=== PATIENT | male | born 1990 | race Caucasian/White ===

== ENCOUNTER 2017-01-09 17:13 | Emergency (ER) | payer MEDICAID | END 2017-01-09 18:46 | disposition home or self-care (01) | DX: S51.811A Laceration without foreign body of right forearm, initial encounter (principal); W26.0XXA Contact with knife, initial encounter; Y93.89 Activity, other specified; Y92.810 Car as the place of occurrence of the external cause; R03.0 Elevated blood-pressure reading, without diagnosis of hypertension; F17.200 Nicotine dependence, unspecified, uncomplicated; Z79.01 Long term (current) use of anticoagulants ==

== ENCOUNTER 2017-04-20 14:04 | Emergency (ER) | payer MEDICAID ==
[2017-04-20 14:14] VITALS: BP 132/92
--- NOTE | 2017-04-20 15:15 | ED Physician Documentation ---
PD HPI UPPER EXT INJURY - Stated complaint Stated Complaint: COLD,HAND INJURY,R RIB INJURY - Chief complaint Chief Complaint: General - History obtained from History obtained from: Patient - History of Present Illness Location: Right, Hand Type of injury: Blunt / blow (he punched a wall couple days ago and has pain in hand. Started a cough with congestion and having dyspnea and right ribs pain with cough and deep breathing) Where injury occurred: Home Timing - onset: How many weeks ago (had cough and some pain with coughing right ribs.) Timing - duration: Days Timing - details: Abrupt onset (with the pain in hand/slow improvement, can add finger splints but he declines. got chest/ribs xray and appears okay. Presume muscular strain from cough.) Improved by: Rest Worsened by: Moving, Palpating Associated symptoms: No: Weakness, Numbness, Tingling Review of Systems Constitutional: denies: Fever, Chills Nose: denies: Rhinorrhea / runny nose, Congestion Throat: denies: Sore throat Cardiac: reports: Chest pain / pressure (hurts with cough and deep breathing) Respiratory: reports: Dyspnea, Cough, Wheezing GI: reports: Nausea, Vomiting. denies: Abdominal Pain, Diarrhea : denies: Dysuria, Frequency PD PAST MEDICAL HISTORY - Past Medical History Cardiovascular: None Respiratory: None Neuro: None Endocrine/Autoimmune: None : Renal insuffiency Psych: Anxiety, ADD/ADHD Other Past Medical History: clot in intestine, nephrotic syndrome - Past Surgical History Past Surgical History: Yes - Present Medications Home Medications: Ambulatory Orders Medication Instructions Recorded Confirmed Atorvastatin [Lipitor] 40 mg PO DAILY 01/09/17 01/09/17 Lisinopril [Zestril] 5 mg PO DAILY 01/09/17 01/09/17 Warfarin [Coumadin] 5 mg PO 1400 01/09/17 01/09/17 predniSONE [Deltasone] 35 mg PO DAILY 01/09/17 01/09/17 Albuterol Sulfate [Proair Hfa 2 puffs IH QID #1 hfa.aer.ad 04/20/17 Inhaler] Azithromycin [Zithromax] 250 mg PO DAILY #6 tablet 04/20/17 Hydrocodone/Acetaminophen [[place] 1 each PO Q6H PRN #20 tablet 04/20/17 5-325 Tablet] - Allergies Allergies/Adverse Reactions: Allergies Allergy/AdvReac Type Severity Reaction Status Date / Time amoxicillin trihydrate * Allergy Unknown Verified 05/22/16 17:26 [From Augmentin] potassium clavulanate * Allergy Unknown Verified 05/22/16 17:26 [From Augmentin] - Social History Does the pt smoke?: Yes Smoking Status: Current every day smoker Does the pt drink ETOH?: Yes Does the pt have substance abuse?: Yes Substance Use and Type: Marijuana - Immunizations Immunizations are current?: Yes Immunizations: TDAP current <10years - POLST Patient has POLST: No PD ED PE NORMAL - Vitals Vital signs reviewed: Yes - General General: Alert and oriented X 3, No acute distress, Well developed/nourished - HEENT HEENT: Atraumatic, Ears normal, Pharynx benign - Neck Neck: Supple, no meningeal sign - Cardiac Cardiac: RRR, No murmur - Respiratory Respiratory: No respiratory distress - Abdomen Abdomen: Soft, Non tender - Male Male : Deferred - Rectal Rectal: Deferred - Back Back: No CVA TTP - Derm Derm: Normal color - Extremities Extremities: Other (right hand with tenderness and ecchymosis dorsal pointer and middle finger MCPs, without deformity. Able to extend but some discomfort.) - Neuro Neuro: Alert and oriented X 3, No motor deficit, No sensory deficit Results - Vitals Vitals: Oxygen O2 Source Room air PD MEDICAL DECISION MAKING - ED course Complexity details: reviewed results, re-evaluated patient, considered differential (he has been on steroids longer term, so does not want to stop 15 to zero without better taper, and not with current URI symptoms (may even need stress dose). ), d/w patient Departure - Departure Disposition: 01 Home, Self Care Clinical Impression: Right-sided chest pain Contusion of hand, right Qualifiers: Encounter type: initial encounter Qualified Code(s): S60.221A - Contusion of right hand, initial encounter Upper respiratory infection Qualifiers: URI type: unspecified URI Qualified Code(s): J06.9 - Acute upper respiratory infection, unspecified Condition: Stable Record reviewed to determine appropriate education?: Yes Instructions: ED Upper Resp Infec Abx Tx, ED Contusion Hand Follow-Up: Cristian Almanzar MD [Primary Care Provider] - Prescriptions: Hydrocodone/Acetaminophen [[place] 5-325 Tablet] 1 each PO Q6H PRN #20 tablet PRN Reason: Pain Albuterol Sulfate [Proair Hfa Inhaler] 2 puffs IH QID #1 hfa.aer.ad Azithromycin [Zithromax] 250 mg PO DAILY #6 tablet Comments: Resume your prednisone 15 mg daily for now and can start tapering at 10 mg after a week or so. This can help with the cough as well. He is on albuterol inhaler 2 puffs 4 times a day and extra times as needed for trouble breathing. Due to concerns for bacterial infection, will treat it with Zithromax antibiotic for 5 days. For the cough and or pain of the chest, he can use hydrocodone every 6 hours if needed. Follow-up with your primary care if not improving over the next several days to week. For the hand use gentle use of it and that should slowly improve. There is no fractures on the hand. Discharge Date/Time: 04/20/17 16:51
[2017-04-20] MEDS ORDERED: HYDROcod/ACETAM 5/325 MG TABLET PO STA (15:25)
[2017-04-20] MEDS ORDERED: ALBUTEROL NEB 2.5 MG/3 ML INH STA (15:25)
[2017-04-20] MEDS ORDERED: ALBUTEROL NEB 2.5 MG/3 ML INH ONE (15:39)
[2017-04-20] MEDS ORDERED: HYDROcod/ACETAM 5/325 MG TABLET ONE (15:43)
--- NOTE | 2017-04-20 16:12 | XRAY Preliminary Report ---
Exam: XR Ribs w/PA Chest RT IMPRESSION: Negative rib radiography. [facility] SITE ID: [id number]
--- NOTE | 2017-04-20 16:13 | XRAY Preliminary Report ---
Exam: XR Hand 3 View RT IMPRESSION: No evidence of fracture or dislocation. [facility] SITE ID: [id number]
--- NOTE | 2017-04-20 16:15 | XRAY Report ---
EXAM: RIGHT RIB RADIOGRAPHY EXAM DATE: 04/20/2017 03:51 PM. CLINICAL HISTORY: Rib pain. COMPARISON: None. TECHNIQUE: 2 views. FINDINGS: Bones: Normal. No fracture or bone lesion. Lungs: No focal opacities evident. No pneumothorax or pleural effusions. Mediastinum: Heart and cardiomediastinal contours are unremarkable. Other: None. IMPRESSION: Negative rib radiography. [facility] Referring Provider Line: [phone] SITE ID: [id number]
--- NOTE | 2017-04-20 16:16 | XRAY Report ---
EXAM: RIGHT HAND RADIOGRAPHY EXAM DATE: 04/20/2017 03:49 PM. CLINICAL HISTORY: Punched a wall two days ago. COMPARISON: None. TECHNIQUE: 3 views. FINDINGS: Bones: No fracture or focal bony lesion. Joints: No evidence of dislocation. Soft Tissues: No unexpected soft tissue findings. IMPRESSION: No evidence of fracture or dislocation. [facility] Referring Provider Line: [phone] SITE ID: [id number]
== END 2017-04-20 16:51 | disposition home or self-care (01) ==
LOC: ED 14:04
DX: R07.9 Chest pain, unspecified (principal); S60.221A Contusion of right hand, initial encounter; J06.9 Acute upper respiratory infection, unspecified; F17.200 Nicotine dependence, unspecified, uncomplicated; W22.09XA Striking against other stationary object, initial encounter; Y93.89 Activity, other specified; Y92.009 Unspecified place in unspecified non-institutional (private) residence as the place of occurrence of the external cause
CPT/HCPCS: 71101; 73130; 94640; 99283; A9270; J7613

== ENCOUNTER 2017-06-06 20:56 | Outpatient (CLI) | payer OTHER | END 2017-06-06 20:57 | disposition home or self-care (01) | LOC: LAB 20:56 | PROVIDERS: ATTEND Pathology Neuropathology | DX: Z01.89 Encounter for other specified special examinations (principal) | CPT/HCPCS: 36415 ==

== ENCOUNTER 2017-10-17 07:53 | Outpatient (CLI) | payer MEDICAID | END 2017-10-17 07:54 | disposition critical access hospital (66) | LOC: EMS 07:53 | PROVIDERS: ATTEND Surgery | DX: R45.851 Suicidal ideations (principal) | CPT/HCPCS: A0425; A0429 ==

== ENCOUNTER 2017-10-17 08:09 | Emergency (ER) | payer MEDICAID ==
[2017-10-17 08:40] LABS: HCT - HEMATOCRIT 48.1 % (42.0-52.0); HGB - HEMOGLOBIN 16.5 g/dL (14.0-18.0); MEAN CORPUSCULAR HEMOGLOBIN 30.5 pg (27.0-31.0); MEAN CORPUSCULAR HGB CONC 34.2 g/dL (32.0-36.0); MEAN CORPUSCULAR VOLUME 89.1 fL (80.0-94.0); MEAN PLATELET VOLUME 8.1 fL (7.4-11.4); RED BLOOD COUNT 5.39 10^6/uL (4.70-6.10); RED CELL DISTRIBUTION WIDTH 15.2 % (12.0-15.0); WHITE BLOOD COUNT 8.4 x10^3/uL (4.8-10.8)
[2017-10-17 08:54] LABS: ALBUMIN/GLOBULIN RATIO 0.4 (1.0-2.2); BILIRUBIN,TOTAL 0.4 mg/dL (0.2-1.0); BUN - BLOOD UREA NITROGEN 24 mg/dL (6-20); CARBON DIOXIDE - CO2 25 mmol/L (21-32); CHLORIDE 102 mmol/L (101-111); GFR - MDRD 88 (>89); GLUCOSE 98 mg/dL (70-100); LIPASE 25 U/L (22-51); POTASSIUM 3.8 mmol/L (3.5-5.0); SALICYLATE < 6.0 mg/dL; SODIUM 137 mmol/L (135-145); TOTAL PROTEIN 5.2 g/dL (6.7-8.2)
[2017-10-17 09:05] LABS: ACETAMINOPHEN < 10 ug/mL (10-30)
[2017-10-17] MEDS ORDERED: ACETAMINOPHEN 500 MG TABLET PO STA (09:12)
--- NOTE | 2017-10-17 09:20 | CT Preliminary Report ---
Exam: CT FACIAL BONES W/O IMPRESSION: Right orbital/periorbital soft tissue swelling without underlying fracture or other acute process. Moderate changes of chronic sinusitis most prominent in the maxillary and ethmoid air cells. No air-f luid levels. [facility] SITE ID: [id number]
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
[2017-10-17 09:46] VITALS: BP 153/92
== END 2017-10-17 09:50 | disposition home or self-care (01) ==
LOC: EDUNIT# → ED 08:09
DX: S00.83XA Contusion of other part of head, initial encounter (principal); X83.8XXA Intentional self-harm by other specified means, initial encounter; Y92.019 Unspecified place in single-family (private) house as the place of occurrence of the external cause; F43.0 Acute stress reaction; N04.9 Nephrotic syndrome with unspecified morphologic changes; Z79.01 Long term (current) use of anticoagulants; F17.200 Nicotine dependence, unspecified, uncomplicated
CPT/HCPCS: 36415; 70486; 80053; 80306; 80307; 80320; 80329; 83690; 85027; 99283; 99284; A9270

== ENCOUNTER 2018-04-12 10:28 | Outpatient (CLI) | payer MEDICAID | END 2018-04-12 10:29 | disposition critical access hospital (66) | LOC: EMS 10:28 | PROVIDERS: ATTEND Surgery | DX: R45.851 Suicidal ideations (principal) | CPT/HCPCS: A0425; A0429 ==

== ENCOUNTER 2018-04-12 10:43 | Emergency (ER) | payer MEDICAID ==
[2018-04-12 10:59] LABS: MUDS CUTOFF CONCENTRATIONS CUTOFF CONC BELOW:
[2018-04-12 11:06] LABS: BASOPHILS # (AUTO) 0.1 10^3/uL (0.0-0.1); BASOPHILS % (AUTO) 1.1 %; EOSINOPHILS # (AUTO) 0.4 10^3/uL (0.0-0.7); EOSINOPHILS % (AUTO) 4.8 %; HGB - HEMOGLOBIN 15.7 g/dL (14.0-18.0); LYMPHOCYTES # (AUTO) 2.8 10^3/uL (1.5-3.5); LYMPHOCYTES % (AUTO) 30.3 %; MEAN CORPUSCULAR HEMOGLOBIN 31.8 pg (27.0-31.0); MEAN CORPUSCULAR HGB CONC 33.7 g/dL (32.0-36.0); MEAN CORPUSCULAR VOLUME 94.5 fL (80.0-94.0); MEAN PLATELET VOLUME 7.7 fL (7.4-11.4); MONOCYTES # (AUTO) 0.6 10^3/uL (0.0-1.0); MONOCYTES % (AUTO) 6.2 %; NEUTROPHILS # (AUTO) 5.3 10^3/uL (1.5-6.6); NEUTROPHILS % (AUTO) 57.6 %; PLT - PLATELET COUNT 329 10^3/uL (130-450); RED BLOOD COUNT 4.95 10^6/uL (4.70-6.10); RED CELL DISTRIBUTION WIDTH 13.3 % (12.0-15.0); WHITE BLOOD COUNT 9.3 x10^3/uL (4.8-10.8)
[2018-04-12 11:13] LABS: BILIRUBIN,URINE NEGATIVE (NEGATIVE); GLUCOSE, URINE (UA) NEGATIVE (NEGATIVE); KETONES,URINE (UA) NEGATIVE (NEGATIVE); LEUKOCYTE ESTERASE, URINE NEGATIVE (NEGATIVE); NITRITE,URINE NEGATIVE (NEGATIVE); OCCULT BLOOD,URINE TRACE-INTA (NEGATIVE); PROTEIN,URINE >=300 mg/dL (NEGATIVE); UROBILINOGEN,URINE 0.2 (NORMAL) E.U./dL (NORMAL)
[2018-04-12 11:15] LABS: CLARITY,URINE CLEAR (CLEAR)
[2018-04-12 11:22] LABS: ALBUMIN 2.3 g/dL (3.2-5.5); ALBUMIN/GLOBULIN RATIO 0.7 (1.0-2.2); ALKALINE PHOSPHATASE 88 IU/L (42-121); ALT ALANINE AMINOTRANSFERASE 52 IU/L (10-60); AST ASPARTATE AMINOTRANSFERASE 46 IU/L (10-42); BILIRUBIN,TOTAL 0.5 mg/dL (0.2-1.0); BUN - BLOOD UREA NITROGEN 16 mg/dL (6-20); CALCIUM 8.4 mg/dL (8.5-10.3); CARBON DIOXIDE - CO2 26 mmol/L (21-32); CHLORIDE 101 mmol/L (101-111); CREATININE 0.9 mg/dL (0.6-1.2); GFR - MDRD 99 (>89); GLUCOSE 118 mg/dL (70-100); LIPASE 28 U/L (22-51); SALICYLATE < 6.0 mg/dL; SODIUM 137 mmol/L (135-145); TOTAL PROTEIN 5.8 g/dL (6.7-8.2)
[2018-04-12 11:25] LABS: BACTERIA,URINE Rare /HPF (None Seen); RBC,URINE None Seen /HPF (0-5); SQUAMOUS EPITHELIAL CELL,UR RARE Squamous (<= Few)
[2018-04-12 11:26] LABS: AMPHETAMINE SCREEN,URINE POSITIVE (NEGATIVE); BENZODIAZEPINES SCREEN, URINE NEGATIVE (NEGATIVE); CASTS, URINE 0-2 Cellular Casts /LPF; COCAINE SCREEN URINE NEGATIVE (NEGATIVE); METHADONE SCREEN, URINE NEGATIVE (NEGATIVE); METHAMPHETAMINES SCREEN, URINE POSITIVE (NEGATIVE); OPIATE SCREEN, URINE NEGATIVE (NEGATIVE); OXYCODONE SCREEN, URINE NEGATIVE (NEGATIVE); PROPOXYPHENE SCREEN, URINE NEGATIVE (NEGATIVE); TRICYCLIC ANTIDEPRESSANT,URINE NEGATIVE (NEGATIVE)
[2018-04-12 11:27] LABS: ACETAMINOPHEN < 10 ug/mL (10-30)
--- NOTE | 2018-04-12 12:55 | ED Physician Documentation ---
PD HPI MHE - Stated complaint Stated Complaint: MHE - Chief complaint Chief Complaint: MHE - History obtained from History obtained from: Patient - History of Present Illness Primary symptom: Suicidal ideation (made comment to his girlfriend about hurting himself, with not anything left to live for, as she was not letting him see their child as per court parenting plan. She called PD and they brought him here. He says he said it just to get a response from her. He says did not mean it and is not suicidal. No police statement left here in ED.) Timing - onset: Today Contributing factors: Substance abuse - drugs (in the past but denies currently. ). No: Substance abuse - ETOH Recently seen: Not recently seen Review of Systems Constitutional: denies: Fever Nose: denies: Rhinorrhea / runny nose, Congestion Throat: denies: Sore throat Cardiac: denies: Chest pain / pressure, Palpitations Respiratory: denies: Dyspnea, Cough GI: denies: Abdominal Pain, Vomiting, Diarrhea Neurologic: denies: Headache, Head injury Psychiatric: reports: Depressed, Anxiety. denies: Suicidal, Delusions PD PAST MEDICAL HISTORY - Past Medical History Past Medical History: Yes Cardiovascular: None, Hypertension, High cholesterol Respiratory: None Endocrine/Autoimmune: None : Renal insuffiency Psych: Anxiety, ADD/ADHD - Past Surgical History Past Surgical History: Yes - Present Medications Home Medications: Ambulatory Orders Medication Instructions Recorded Confirmed Atorvastatin [Lipitor] 40 mg PO DAILY 01/09/17 01/09/17 Lisinopril [Zestril] 5 mg PO DAILY 01/09/17 01/09/17 Warfarin [Coumadin] 5 mg PO 1400 01/09/17 01/09/17 predniSONE [Deltasone] 35 mg PO DAILY 01/09/17 01/09/17 Albuterol Sulfate [Proair Hfa 2 puffs IH QID #1 hfa.aer.ad 04/20/17 Inhaler] Azithromycin [Zithromax] 250 mg PO DAILY #6 tablet 04/20/17 Hydrocodone/Acetaminophen [[place] 1 each PO Q6H PRN #20 tablet 04/20/17 5-325 Tablet] - Allergies Allergies/Adverse Reactions: Allergies Allergy/AdvReac Type Severity Reaction Status Date / Time amoxicillin trihydrate * Allergy Unknown Verified 05/22/16 17:26 [From Augmentin] potassium clavulanate * Allergy Unknown Verified 05/22/16 17:26 [From Augmentin] - Social History Does the pt smoke?: Yes Smoking Status: Current every day smoker Does the pt drink ETOH?: Yes Does the pt have substance abuse?: Yes Substance Use and Type: Marijuana - Immunizations Immunizations are current?: Yes Immunizations: TDAP current <10years - POLST Patient has POLST: No PD ED PE NORMAL - Vitals Vital signs reviewed: Yes - General General: Alert and oriented X 3, No acute distress, Well developed/nourished - Neck Neck: Supple, no meningeal sign, No adenopathy - Cardiac Cardiac: RRR, No murmur - Respiratory Respiratory: Clear bilaterally - Derm Derm: Normal color, Warm and dry - Neuro Neuro: Alert and oriented X 3, No motor deficit, Normal speech - Psych Psych: Normal mood. No: Normal affect (slightly anxious but pleasant and cooperative. ) Results - Vitals Vitals: Oxygen O2 Source Room air - Labs Labs: Laboratory Tests 04/12/18 04/12/18 04/12/18 10:56 11:03 11:03 WBC 9.3 RBC 4.95 Hgb 15.7 Hct 46.8 MCV 94.5 H MCH 31.8 H MCHC 33.7 RDW 13.3 Plt Count 329 MPV 7.7 Neut # (Auto) 5.3 Lymph # (Auto) 2.8 [place] # (Auto) 0.6 Eos # (Auto) 0.4 Baso # (Auto) 0.1 Absolute Nucleated RBC 0.01 Nucleated RBC % 0.1 PT INR Sodium 137 Potassium 4.0 Chloride 101 Carbon Dioxide 26 Anion Gap 10.0 BUN 16 Creatinine 0.9 Estimated GFR (MDRD) 99 Glucose 118 H Calcium 8.4 L Total Bilirubin 0.5 AST 46 H ALT 52 Alkaline Phosphatase 88 Total Protein 5.8 L Albumin 2.3 L Globulin 3.5 Albumin/Globulin Ratio 0.7 L Lipase 28 Urine Color YELLOW Urine Clarity CLEAR Urine pH 6.0 Ur Specific [place] 1.025 Urine Protein >=300 Urine Glucose (UA) NEGATIVE Urine Ketones NEGATIVE Urine Occult Blood TRACE-INTA Urine Nitrite NEGATIVE Urine Bilirubin NEGATIVE Urine Urobilinogen 0.2 (NORMAL) Ur Leukocyte Esterase NEGATIVE Urine RBC None Seen Urine WBC 0-3 Ur Squamous Epith Cells RARE Squamous Urine Bacteria Rare Urine Casts 0-2 Cellular Casts Ur Microscopic Review INDICATED Urine Culture Comments NOT INDICATED Salicylates < 6.0 Urine Opiates Screen NEGATIVE Ur Oxycodone Screen NEGATIVE Urine Methadone Screen NEGATIVE Ur Propoxyphene Screen NEGATIVE Acetaminophen < 10 L Ur Barbiturates Screen NEGATIVE Ur Tricyclics Screen NEGATIVE Ur Phencyclidine Scrn NEGATIVE Ur Amphetamine Screen POSITIVE H U Methamphetamines Scrn POSITIVE H U Benzodiazepines Scrn NEGATIVE Urine Cocaine Screen NEGATIVE U Cannabinoids Screen POSITIVE H Ethyl Alcohol 5.1 04/12/18 11:03 WBC RBC Hgb Hct MCV MCH MCHC RDW Plt Count MPV Neut # (Auto) Lymph # (Auto) [place] # (Auto) Eos # (Auto) Baso # (Auto) Absolute Nucleated RBC Nucleated RBC % PT 11.4 INR 1.0 Sodium Potassium Chloride Carbon Dioxide Anion Gap BUN Creatinine Estimated GFR (MDRD) Glucose Calcium Total Bilirubin AST ALT Alkaline Phosphatase Total Protein Albumin Globulin Albumin/Globulin Ratio Lipase Urine Color Urine Clarity Urine pH Ur Specific [place] Urine Protein Urine Glucose (UA) Urine Ketones Urine Occult Blood Urine Nitrite Urine Bilirubin Urine Urobilinogen Ur Leukocyte Esterase Urine RBC Urine WBC Ur Squamous Epith Cells Urine Bacteria Urine Casts Ur Microscopic Review Urine Culture Comments Salicylates Urine Opiates Screen Ur Oxycodone Screen Urine Methadone Screen Ur Propoxyphene Screen Acetaminophen Ur Barbiturates Screen Ur Tricyclics Screen Ur Phencyclidine Scrn Ur Amphetamine Screen U Methamphetamines Scrn U Benzodiazepines Scrn Urine Cocaine Screen U Cannabinoids Screen Ethyl Alcohol PD MEDICAL DECISION MAKING - ED course Complexity details: d/w patient (he denies suicidal ideation. SW not available. I feel he is able to be discharged safely. ) - Sepsis Event Vital Signs: Oxygen O2 Source Room air Departure - Departure Disposition: 01 Home, Self Care Clinical Impression: Suicidal ideation, Situational anxiety Condition: Stable Record reviewed to determine appropriate education?: Yes Follow-Up: Cinda Asher ARNP [Primary Care Provider] - Comments: Follow-through with the initial evaluation at [facility] and obtain counseling. Drink lots of fluids. Call the crisis line if you feel that you have a need to talk to someone urgently at any time. Discharge Date/Time: 04/12/18 13:51
[2018-04-12 13:31] LABS: PT - PROTHROMBIN TIME 11.4 secs (9.9-12.6)
[2018-04-12 13:51] VITALS: BP 162/110
== END 2018-04-12 13:51 | disposition home or self-care (01) ==
LOC: EDUNIT# → ED 10:43
DX: R45.851 Suicidal ideations (principal); F41.8 Other specified anxiety disorders; I10 Essential (primary) hypertension; E78.00 Pure hypercholesterolemia, unspecified; Z79.01 Long term (current) use of anticoagulants; F17.200 Nicotine dependence, unspecified, uncomplicated
CPT/HCPCS: 36415; 80053; 80306; 80307; 80320; 80329; 81001; 81003; 83690; 85025; 85610; 87086; 99283

== ENCOUNTER 2018-12-17 09:20 | Emergency (ER) | payer MEDICAID ==
[2018-12-17 09:28] VITALS: BP 143/93
--- NOTE | 2018-12-17 09:43 | ED Physician Documentation ---
PD HPI HEENT - Stated complaint Stated Complaint: LT SIDE FACIAL SWELLING/LT EAR PX - Chief complaint Chief Complaint: Heent - History obtained from History obtained from: Patient - History of Present Illness Timing - onset: How many days ago (several) Timing - duration: Days Timing - details: Gradual onset, Still present Location: Left ear, Tooth Associated symptoms: Facial swelling. No: Fever, Congestion, Swollen nodes Similar symptoms before: Has not had sx before Review of Systems Constitutional: denies: Fever, Chills, Myalgias Throat: reports: Dental pain / toothache (left upper gum and tooth remaining present.) Neurologic: denies: Focal weakness, Numbness, Headache PD PAST MEDICAL HISTORY - Past Medical History Past Medical History: Yes Cardiovascular: None, Hypertension, High cholesterol Respiratory: None Endocrine/Autoimmune: None : Renal insuffiency Psych: Anxiety, ADD/ADHD - Past Surgical History Past Surgical History: Yes - Present Medications Home Medications: Ambulatory Orders Medication Instructions Recorded Confirmed Atorvastatin [Lipitor] 40 mg PO DAILY 01/09/17 01/09/17 Lisinopril [Zestril] 5 mg PO DAILY 01/09/17 01/09/17 Albuterol Sulfate [Proair Hfa 2 puffs IH QID #1 hfa.aer.ad 04/20/17 Inhaler] Dexamethasone [Decadron] 4 mg PO DAILY #5 tablet 12/17/18 Doxycycline Hyclate 100 mg PO BID #14 capsule 12/17/18 Hydrocodone/Acetaminophen [[place] 1 each PO Q6H PRN #12 tablet 12/17/18 5-325 Tablet] - Allergies Allergies/Adverse Reactions: Allergies Allergy/AdvReac Type Severity Reaction Status Date / Time amoxicillin trihydrate * Allergy Unknown Verified 05/22/16 17:26 [From Augmentin] potassium clavulanate * Allergy Unknown Verified 05/22/16 17:26 [From Augmentin] - Social History Does the pt smoke?: Yes Smoking Status: Current every day smoker Does the pt drink ETOH?: Yes Does the pt have substance abuse?: Yes - Immunizations Immunizations are current?: Yes Immunizations: TDAP current <10years - POLST Patient has POLST: No PD ED PE NORMAL - Vitals Vital signs reviewed: Yes - General General: Alert and oriented X 3, No acute distress, Well developed/nourished - HEENT HEENT: Ears normal, Pharynx benign. No: Dentition benign (left upper teeth in particulr showing caries with teeth broken down to gum level for all of them. There is swelling at base of left upper gum line. No noted fluctuance. ) - Cardiac Cardiac: RRR, No murmur - Respiratory Respiratory: Clear bilaterally Results - Vitals Vitals: Vital Signs - 24 hr 12/17/18 09:26 Temperature 36.2 C L Heart Rate 78 Respiratory 18 Rate Blood Pressure 143/93 H O2 Saturation 99 Oxygen O2 Source Room air PD MEDICAL DECISION MAKING - ED course Complexity details: re-evaluated patient, considered differential, d/w patient, d/w family Departure - Departure Disposition: 01 Home, Self Care Clinical Impression: Infected dental caries, Facial pain, acute Condition: Stable Record reviewed to determine appropriate education?: Yes Instructions: ED Abscess Dental Follow-Up: Cinda Asher ARNP [Primary Care Provider] - Camilo Gonzalez DDS [Provider Admit Priv/Credential] - Prescriptions: Dexamethasone [Decadron] 4 mg PO DAILY #5 tablet Doxycycline Hyclate 100 mg PO BID #14 capsule Hydrocodone/Acetaminophen [[place] 5-325 Tablet] 1 each PO Q6H PRN #12 tablet PRN Reason: Pain Comments: Rinse the mouth and broken teeth area with a septic mouthwash to 3 times a day. Use doxycycline antibiotic as directed for the next week for the infection. Decadron can be used for the inflammation and would not affect your kidneys like NSAIDs would. Add Tylenol or hydrocodone if needed for pain. Follow-up with [facility] dental clinic or alternatively oral surgeon (he will have to call to see if they would take your insurance). Discharge Date/Time: 12/17/18 10:29
[2018-12-17] MEDS ORDERED: DOXYCYCLINE 100 MG TABLET PO STA (10:03)
[2018-12-17] MEDS ORDERED: HYDROcod/ACETAM 5/325 MG TABLET PO STA (10:03)
[2018-12-17] MEDS ORDERED: DEXAMETHASONE 10 MG/ML VIAL PO STA (10:03)
== END 2018-12-17 10:29 | disposition home or self-care (01) ==
LOC: ED 09:20
DX: K02.9 Dental caries, unspecified (principal); G50.1 Atypical facial pain; F17.200 Nicotine dependence, unspecified, uncomplicated
CPT/HCPCS: 99283; A9270

== ENCOUNTER 2019-01-19 21:58 | Outpatient (CLI) | payer MEDICAID ==
--- NOTE | 2019-01-19 23:47 | Ultrasound Report ---
Reason: ABDOMINAL PAIN, EPIGASTRIC Procedure Date: 01/19/2019 Accession Number: [id number] / [id number] Procedure: US - Abdomen Limited CPT Code: FULL RESULT: EXAM: ABDOMEN ULTRASOUND LIMITED, RUQ EXAM DATE: 01/19/2019 11:21 PM. CLINICAL HISTORY: ABDOMINAL PAIN, EPIGASTRIC. COMPARISON: None. TECHNIQUE: Real-time scanning was performed with static images obtained. FINDINGS: Liver: Normal in size and echotexture. 14.9 cm. Main portal vein flow: Hepatopetal. Gallbladder: There is echogenic density within the fundus of the gallbladder which may represent tenacious sludge. This measures approximately 12 mm x 10 mm. There is no shadowing. This does not have a masslike quality. There are no echogenic foci. Biliary System: CBD measures 2.4 mm. No intrahepatic or extrahepatic ductal dilatation. Other: No evidence for hydronephrosis. IMPRESSION: 1. Echogenic material in the fundus the gallbladder of uncertain significance. This may represent tenacious non-mobile sludge. A mass is not excluded yet much less likely. No evidence for cholelithiasis. RADIA The call report notification system was initiated by Dr. Cristian Sr at 11:46 PM on 01/19/2019.
== END 2019-01-19 21:59 | disposition home or self-care (01) ==
LOC: DI 21:58
PROVIDERS: ATTEND Family Medicine
DX: R10.13 Epigastric pain (principal)
CPT/HCPCS: 76705

== ENCOUNTER 2019-01-24 16:26 | Outpatient (CLI) | payer MEDICAID ==
[2019-01-24 17:12] LABS: ALBUMIN 1.3 g/dL (3.2-5.5); ALBUMIN/GLOBULIN RATIO 0.4 (1.0-2.2); BILIRUBIN,TOTAL 0.7 mg/dL (0.2-1.0); CALCIUM 8.1 mg/dL (8.5-10.3); CREATININE 1.1 mg/dL (0.6-1.2); TOTAL PROTEIN 4.7 g/dL (6.7-8.2)
[2019-01-24 19:32] LABS: CREATININE,URINE 125.6 mg/dL; PROTEIN/CREATININE RATIO,URINE 12.4 (<=0.2)
[2019-01-24 19:45] LABS: BASOPHILS # (AUTO) 0.1 10^3/uL (0.0-0.1); BASOPHILS % (AUTO) 0.8 %; EOSINOPHILS # (AUTO) 0.2 10^3/uL (0.0-0.7); EOSINOPHILS % (AUTO) 2.4 %; HGB - HEMOGLOBIN 13.4 g/dL (14.0-18.0); LYMPHOCYTES # (AUTO) 3.4 10^3/uL (1.5-3.5); LYMPHOCYTES % (AUTO) 39.8 %; MEAN CORPUSCULAR HEMOGLOBIN 31.2 pg (27.0-31.0); MEAN CORPUSCULAR HGB CONC 32.9 g/dL (32.0-36.0); MEAN CORPUSCULAR VOLUME 94.9 fL (80.0-94.0); MEAN PLATELET VOLUME 8.4 fL (7.4-11.4); MONOCYTES # (AUTO) 0.5 10^3/uL (0.0-1.0); MONOCYTES % (AUTO) 6.3 %; NEUTROPHILS # (AUTO) 4.3 10^3/uL (1.5-6.6); NEUTROPHILS % (AUTO) 50.7 %; PLT - PLATELET COUNT 392 10^3/uL (130-450); RED BLOOD COUNT 4.29 10^6/uL (4.70-6.10); RED CELL DISTRIBUTION WIDTH 14.1 % (12.0-15.0); WHITE BLOOD COUNT 8.4 x10^3/uL (4.8-10.8)
== END 2019-01-24 16:27 | disposition home or self-care (01) ==
LOC: LAB 16:26
PROVIDERS: ATTEND Internal Medicine Nephrology
DX: R80.9 Proteinuria, unspecified (principal); N04.9 Nephrotic syndrome with unspecified morphologic changes
CPT/HCPCS: 36415; 80053; 82570; 84156; 85025

== ENCOUNTER 2019-01-25 12:35 | Day surgery (SDC) | payer MEDICAID ==
[2019-01-25] MEDS ORDERED: LACTATED RINGERS 1,000 ML IV ONE (13:32)
[2019-01-25] MEDS ORDERED: LIDO GARGLE 30 ML BOTTLE ONE (14:11)
[2019-01-25] MEDS ORDERED: LIDO GARGLE 30 ML BOTTLE PO ONE (14:27)
[2019-01-25] MEDS ORDERED: MIDAZOLAM 2 MG/2 ML VIAL IVP ONE (14:35)
[2019-01-25] MEDS ORDERED: fentaNYL 250 MCG/5 ML VIAL IVP ONE (14:35)
[2019-01-25 15:11] VITALS: BP 126/80
== END 2019-01-25 12:36 | disposition home or self-care (01) ==
LOC: SDS 12:35
PROVIDERS: ATTEND Internal Medicine Gastroenterology
PROC: 0DB78ZX Excision of Stomach, Pylorus, Via Natural or Artificial Opening Endoscopic, Diagnostic (ICD-10-PCS; 2019-01-25)
PROC: 0DB58ZX Excision of Esophagus, Via Natural or Artificial Opening Endoscopic, Diagnostic (ICD-10-PCS; 2019-01-25)
PROC: 0DB98ZX Excision of Duodenum, Via Natural or Artificial Opening Endoscopic, Diagnostic (ICD-10-PCS; principal; 2019-01-25 13:45)
DX: R10.13 Epigastric pain (principal); K20.9 Esophagitis, unspecified; K31.9 Disease of stomach and duodenum, unspecified; I10 Essential (primary) hypertension; Z87.891 Personal history of nicotine dependence; E78.5 Hyperlipidemia, unspecified
CPT/HCPCS: 43239; A9270; J3010; J7120

== ENCOUNTER 2019-02-19 19:38 | Emergency (ER) | payer MEDICAID ==
--- NOTE | 2019-02-19 20:13 | ED Physician Documentation ---
PD HPI WOUND RECHECK - Stated complaint Stated Complaint: SURGICAL SITE LEAKING - Chief complaint Chief Complaint: Abd Pain - Histroy obtained from History obtained from: Patient, Family (mom) - History of Present Illness Location: Abdomen (The patient has had a persistent clear fluid leak from the periumbilical laparoscopic surgical site from a gallbladder removal 3 weeks ago. He does have a history of nephrotic syndrome so has a edema in his tissue. He does not have ascites per se. He has had continued weeping from the site with some fluid collection subcutaneously. He will come out as a dribble at times otherwise just slow leak. Postoperatively this was not happening until he had his suture removed and then has been leaking since that time, so about a week after surgery. He states he was seen back at [facility] where he had the surgery. He was seen in the ER and had the area sutured and was in the hospital for 3 days to get diuresed to have less edema. He was doing better and then had the sutures removed again a few days ago and has had leakage from the site again. No fever no purulence.) Associated symptoms: Drainage (clear water (not yellow)). No: Fever, Redness Recently seen: Emergency Dept, Admitted, Surgery Review of Systems Constitutional: denies: Fever, Chills Nose: denies: Rhinorrhea / runny nose, Congestion Throat: denies: Sore throat Cardiac: denies: Chest pain / pressure Respiratory: denies: Dyspnea, Cough PD PAST MEDICAL HISTORY - Past Medical History Cardiovascular: None, Hypertension, High cholesterol Respiratory: None Endocrine/Autoimmune: None : Renal insuffiency Psych: Anxiety, ADD/ADHD - Past Surgical History Past Surgical History: Yes General: Cholecystectomy, Other - Present Medications Home Medications: Ambulatory Orders Medication Instructions Recorded Confirmed Atorvastatin [Lipitor] 40 mg PO DAILY 01/09/17 01/25/19 Lisinopril [Zestril] 5 mg PO DAILY 01/09/17 01/25/19 Clindamycin HCl [Clindamycin 300MG 300 mg PO BID 01/24/19 01/25/19 CAP] - Allergies Allergies/Adverse Reactions: Allergies Allergy/AdvReac Type Severity Reaction Status Date / Time amoxicillin [From Augmentin] AdvReac Nausea Verified 01/25/19 13:05 clavulanic acid AdvReac Nausea Verified 01/25/19 13:05 [From Augmentin] - Social History Does the pt smoke?: Yes Smoking Status: Current every day smoker Does the pt drink ETOH?: Yes Does the pt have substance abuse?: Yes Substance Use and Type: Marijuana - Immunizations Immunizations are current?: Yes Immunizations: TDAP current <10years - POLST Patient has POLST: No PD ED PE NORMAL - Vitals Vital signs reviewed: Yes - General General: Alert and oriented X 3, Well developed/nourished - Neck Neck: Supple, no meningeal sign, No adenopathy - Cardiac Cardiac: RRR, No murmur - Respiratory Respiratory: Clear bilaterally - Abdomen Abdomen: Soft, Non tender, Other (mild distended but good bowel sounds. No shifting dullness to percussion. Bedside sono without ascites fluid. Small fluid collection 3-4 mm at subcut tissue at umbilical area. Fluid that drains out with palpation is clear and not cloudy nor yellow. ) - Derm Derm: Normal color, Warm and dry - Extremities Extremities: No tenderness to palpate, No calf tenderness / cord, Other (1+ edema in legs and also in abd tissue) Results - Vitals Vitals: Vital Signs - 24 hr 02/19/19 02/19/19 19:40 22:22 Temperature 36.5 C 37.1 C Heart Rate 78 76 Respiratory 16 16 Rate Blood Pressure 143/99 H 150/92 H O2 Saturation 93 96 Oxygen O2 Source Room air - Labs Labs: Laboratory Tests 02/19/19 02/19/19 20:50 20:50 WBC 11.7 H RBC 3.79 L Hgb 12.3 L Hct 34.8 L MCV 91.9 MCH 32.5 H MCHC 35.4 RDW 14.0 Plt Count 396 MPV 7.8 Neut # (Auto) Not Reportable Lymph # (Auto) Not Reportable [place] # (Auto) Not Reportable Eos # (Auto) Not Reportable Baso # (Auto) Not Reportable Absolute Nucleated RBC Not Reportable Total Counted 100 Band Neuts % (Manual) 0 Abnorm Lymph % (Manual) 0 Nucleated RBC % Not Reportable Neutrophils # (Manual) 6.3 Lymphocytes # (Manual) 4.2 H Monocytes # (Manual) 0.6 Eosinophils # (Manual) 0.6 Basophils # (Manual) 0.0 Differential Comment MANUAL DIFFERENTIAL Manual Slide Review Indicated WBC Morphology NORMAL APPEARANCE Platelet Estimate NORMAL (130-450,000) Platelet Morphology NORMAL APPEARANCE RBC Morph Micro Appear NORMAL APPEARANCE Sodium 135 Potassium 3.6 Chloride 103 Carbon Dioxide 26 Anion Gap 6.0 BUN 32 H Creatinine 1.3 H Estimated GFR (MDRD) 65 L Glucose 118 H Calcium 7.2 L Total Bilirubin 0.6 AST 25 ALT 20 Alkaline Phosphatase 63 Total Protein 3.8 L Albumin 1.2 L Globulin 2.6 Albumin/Globulin Ratio 0.5 L Lipase 106 H Procedures - Laceration (location) periumbilical Length in cm: 0.2 (Round small dehiscence of the surgical wound with clear fluid coming from it.) Anesthesia: Lidocaine 1% with epi Skin layer closure: Nylon, Size #-0 - enter number (4), Sutures - enter # (2) Other: Patient tolerated well Complexity: Simple (After anesthetizing the wound. I did use some handheld cautery to the subcutaneous tissue layer to see if it would weep less and then the 2 cysts sutures to close the dehiscent small opening. There is no apparent draining of fluid coming at from it prior to the stitches but we will see if that will help retain it.) - Bedside sono Bedside sono by EMP: No free fluid in abd cavity. PD MEDICAL DECISION MAKING - ED course Complexity details: considered differential (Some element of anasarca generally from his nephrotic syndrome. The fluid coming from the pinpoint umbilical wound is clear fluid and not even yellow. It looks more subcutaneous edema fluid and not persisting from her coming from peritoneal fluid. I did palpate around and drained out the small amount of fluid that was left at the moment. I then cauterized the area underneath the skin and sutured the skin over to try to reduce the seroma fluid.), d/w patient Departure - Departure Disposition: 01 Home, Self Care Clinical Impression: Nephrotic syndrome, Anasarca Wound dehiscence, surgical Qualifiers: Encounter type: initial encounter Qualified Code(s): T81.31XA - Disruption of external operation (surgical) wound, not elsewhere classified, initial encounter Condition: Stable Record reviewed to determine appropriate education?: Yes Follow-Up: Cinda Asher ARNP [Primary Care Provider] - Comments: Keep the area clean and dry. Allow the glue to fall off on its own after several days. Have the sutures removed in about a week. Hopefully the cautery of the area prior to suturing will create a impetus for the edges to heal better. Continue usual medications. Follow-up with your video and sound recorder as planned this week. I printed copies of your labs to bring with you. Discharge Date/Time: 02/19/19 22:24
[2019-02-19 21:01] LABS: BASOPHILS % (AUTO) 0.5 %; HGB - HEMOGLOBIN 12.3 g/dL (14.0-18.0); LYMPHOCYTES % (AUTO) 46.1 %; MEAN CORPUSCULAR HEMOGLOBIN 32.5 pg (27.0-31.0); MEAN CORPUSCULAR HGB CONC 35.4 g/dL (32.0-36.0); MEAN CORPUSCULAR VOLUME 91.9 fL (80.0-94.0); MEAN PLATELET VOLUME 7.8 fL (7.4-11.4); MONOCYTES % (AUTO) 7.5 %; NEUTROPHILS % (AUTO) 44.9 %; PLT - PLATELET COUNT 396 10^3/uL (130-450); RED BLOOD COUNT 3.79 10^6/uL (4.70-6.10); WHITE BLOOD COUNT 11.7 x10^3/uL (4.8-10.8)
[2019-02-19 21:09] LABS: ABNORMAL LYMPHS % (MANUAL) 0 %; BAND NEUTROPHILS % (MANUAL) 0 %
[2019-02-19 21:11] LABS: ALBUMIN 1.2 g/dL (3.2-5.5); ALBUMIN/GLOBULIN RATIO 0.5 (1.0-2.2); BILIRUBIN,TOTAL 0.6 mg/dL (0.2-1.0); CALCIUM 7.2 mg/dL (8.5-10.3); CREATININE 1.3 mg/dL (0.6-1.2); TOTAL PROTEIN 3.8 g/dL (6.7-8.2)
[2019-02-19 21:21] LABS: DIFFERENTIAL COMMENT MANUAL DIFFERENTIAL; EOSINOPHILS # (MANUAL) 0.6 10^3/uL (0-0.7); LYMPHOCYTES # (MANUAL) 4.2 10^3/uL (1.5-3.5); LYMPHOCYTES % (MANUAL) 36 %; MONOCYTES # (MANUAL) 0.6 10^3/uL (0.0-1.0); NEUTROPHILS # (MANUAL) 6.3 10^3/uL (1.5-6.6); NEUTROPHILS % (MANUAL) 54 %; PLATELET ESTIMATE, MANUAL NORMAL (130-450,000) (NORMAL); PLATELET MORPHOLOGY NORMAL APPEARANCE (NORMAL); RBC MORPHOLOGY (MULTIPLE) NORMAL APPEARANCE (NORMAL)
[2019-02-19 22:23] VITALS: BP 150/92
== END 2019-02-19 22:24 | disposition home or self-care (01) ==
LOC: ED 19:38
DX: T81.31XA Disruption of external operation (surgical) wound, not elsewhere classified, initial encounter (principal); N04.9 Nephrotic syndrome with unspecified morphologic changes; R60.1 Generalized edema; I10 Essential (primary) hypertension; E78.00 Pure hypercholesterolemia, unspecified; F17.200 Nicotine dependence, unspecified, uncomplicated
CPT/HCPCS: 12001; 36415; 80053; 83690; 85025; 99283

== ENCOUNTER 2019-03-05 16:45 | Outpatient (CLI) | payer MEDICAID ==
[2019-03-05 17:06] LABS: BASOPHILS # (AUTO) 0.1 10^3/uL (0.0-0.1); BASOPHILS % (AUTO) 0.6 %; EOSINOPHILS # (AUTO) 0.2 10^3/uL (0.0-0.7); EOSINOPHILS % (AUTO) 1.8 %; HGB - HEMOGLOBIN 13.5 g/dL (14.0-18.0); LYMPHOCYTES # (AUTO) 3.3 10^3/uL (1.5-3.5); LYMPHOCYTES % (AUTO) 34.1 %; MEAN CORPUSCULAR HEMOGLOBIN 30.8 pg (27.0-31.0); MEAN CORPUSCULAR HGB CONC 33.4 g/dL (32.0-36.0); MEAN CORPUSCULAR VOLUME 92.2 fL (80.0-94.0); MEAN PLATELET VOLUME 7.6 fL (7.4-11.4); MONOCYTES # (AUTO) 0.8 10^3/uL (0.0-1.0); MONOCYTES % (AUTO) 8.1 %; NEUTROPHILS # (AUTO) 5.4 10^3/uL (1.5-6.6); NEUTROPHILS % (AUTO) 55.4 %; PLT - PLATELET COUNT 393 10^3/uL (130-450); RED BLOOD COUNT 4.38 10^6/uL (4.70-6.10); RED CELL DISTRIBUTION WIDTH 13.8 % (12.0-15.0); WHITE BLOOD COUNT 9.8 x10^3/uL (4.8-10.8)
[2019-03-05 17:11] LABS: BILIRUBIN,URINE NEGATIVE (NEGATIVE); GLUCOSE, URINE (UA) 250 mg/dL (NEGATIVE); KETONES,URINE (UA) NEGATIVE (NEGATIVE); LEUKOCYTE ESTERASE, URINE NEGATIVE (NEGATIVE); NITRITE,URINE NEGATIVE (NEGATIVE); OCCULT BLOOD,URINE SMALL (NEGATIVE); PH,URINE 6.5 PH (5.0-7.5); PROTEIN,URINE >=300 mg/dL (NEGATIVE); UROBILINOGEN,URINE 0.2 (NORMAL) E.U./dL (NORMAL)
[2019-03-05 17:19] LABS: ALBUMIN 1.5 g/dL (3.2-5.5); CALCIUM 7.7 mg/dL (8.5-10.3); CREATININE 1.6 mg/dL (0.6-1.2); MAGNESIUM 1.9 mg/dL (1.7-2.8); PHOSPHORUS 3.8 mg/dL (2.5-4.6)
[2019-03-05 17:25] LABS: CLARITY,URINE CLEAR (CLEAR)
[2019-03-05 17:40] LABS: AMORPHOUS SEDIMENT,UR Few /LPF; BACTERIA,URINE Few /HPF (None Seen); RBC,URINE 0-5 /HPF (0-5); SQUAMOUS EPITHELIAL CELL,UR FEW Squamous (<= Few)
== END 2019-03-05 16:46 | disposition home or self-care (01) ==
LOC: LAB 16:45
PROVIDERS: ATTEND Internal Medicine Nephrology
DX: I13.10 Hypertensive heart and chronic kidney disease without heart failure, with stage 1 through stage 4 chronic kidney disease, or unspecified chronic kidney disease (principal); N18.2 Chronic kidney disease, stage 2 (mild); N04.9 Nephrotic syndrome with unspecified morphologic changes
CPT/HCPCS: 36415; 80069; 81001; 82040; 83735; 84156; 85025

== ENCOUNTER 2019-03-15 18:15 | Outpatient (CLI) | payer MEDICAID | END 2019-03-15 18:16 | disposition home or self-care (01) | LOC: LAB 18:15 | PROVIDERS: ATTEND Nurse Practitioner Gerontology | DX: I74.8 Embolism and thrombosis of other arteries (principal) | CPT/HCPCS: 85610 ==

== ENCOUNTER 2019-03-19 07:32 | Emergency (ER) | payer MEDICAID ==
[2019-03-19 07:37] VITALS: BP 144/83
[2019-03-19] MEDS ORDERED: cefTRIAXone 1 GM VIAL IM STA (08:19)
[2019-03-19] MEDS ORDERED: DEXAMETHASONE 10 MG/ML VIAL PO STA (08:19)
[2019-03-19] MEDS ORDERED: CHERRY SYRUP 10 ML UDC PO ONE (08:19)
[2019-03-19] MEDS ORDERED: LIDOCAINE 1% 2 ML VIAL MC ONE (08:19)
--- NOTE | 2019-03-19 08:22 | ED Physician Documentation ---
PD HPI URI - Stated complaint Stated Complaint: THROAT PAIN - Chief complaint Chief Complaint: Heent - History obtained from History obtained from: Patient - History of Present Illness Timing - onset: How many days ago (3) Timing duration: Days (3) Timing details: Gradual onset, Still present Associated symptoms: Ear pain, Nasal congestion, Rhinorrhea, Sore throat, Productive cough Contributing factors: Sick contact (daughter sick with OM) Improves by: Rest, Medication Worsened by: Activity Similar symptoms before: Diagnosis (OM) Recently seen: Not recently seen - Additional information Additional information: 28-year-old male who is on CellCept for nephrotic syndrome has had multiple episodes previously of otitis media and today he is complaining of a 3-day history of sore throat cough congestion and ear pain. He does have a daughter who is sick at home with otitis as well. He indicates that his kidney function and fluid retention have improved dramatically. Review of Systems Constitutional: denies: Fever Eyes: denies: Decreased vision Ears: reports: Ear pain Nose: reports: Rhinorrhea / runny nose, Congestion Throat: reports: Sore throat Cardiac: denies: Chest pain / pressure, Palpitations Respiratory: reports: Cough. denies: Dyspnea GI: denies: Vomiting PD PAST MEDICAL HISTORY - Past Medical History Cardiovascular: None, Hypertension, High cholesterol Respiratory: None Endocrine/Autoimmune: None : Renal insuffiency Psych: Anxiety, ADD/ADHD - Past Surgical History Past Surgical History: Yes General: Cholecystectomy, Other - Present Medications Home Medications: Ambulatory Orders Medication Instructions Recorded Confirmed Atorvastatin [Lipitor] 40 mg PO DAILY 01/09/17 01/25/19 Lisinopril [Zestril] 5 mg PO DAILY 01/09/17 01/25/19 Clindamycin HCl [Clindamycin 300MG 300 mg PO BID 01/24/19 01/25/19 CAP] Azithromycin [Zithromax] 250 mg PO DAILY #6 tablet 03/19/19 - Allergies Allergies/Adverse Reactions: Allergies Allergy/AdvReac Type Severity Reaction Status Date / Time amoxicillin [From Augmentin] AdvReac Nausea Verified 03/19/19 07:37 clavulanic acid AdvReac Nausea Verified 03/19/19 07:37 [From Augmentin] - Social History Does the pt smoke?: Yes Smoking Status: Current every day smoker Does the pt drink ETOH?: Yes Does the pt have substance abuse?: Yes - Immunizations Immunizations are current?: Yes Immunizations: TDAP current <10years - POLST Patient has POLST: No PD ED PE NORMAL - Vitals Vital signs reviewed: Yes (hypertensive ) - General General: Alert and oriented X 3, No acute distress, Well developed/nourished - HEENT HEENT: Atraumatic, PERRL, EOMI, Other (The left TM is inflamed with distortion of the landmarks and tympanosclerosis. The right is similarly affected. 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, No motor deficit, No sensory deficit, Normal speech Eye Opening: Spontaneous Motor: Obeys Commands Verbal: Oriented GCS Score: 15 - Psych Psych: Normal mood, Normal affect Results - Vitals Vitals: Vital Signs - 24 hr 03/19/19 07:36 Temperature 36.7 C Heart Rate 74 Respiratory 17 Rate Blood Pressure 144/83 H O2 Saturation 96 Oxygen O2 Source Room air - Labs Labs: Laboratory Tests 03/19/19 07:39 Group A Strep Rapid Negative PD MEDICAL DECISION MAKING - ED course Complexity details: considered differential, d/w patient ED course: 28-year-old male on CellCept has developed a sore throat and cough and on exam has otitis media. He is immunosuppressed and more aggressive therapy with IM Rocephin is instituted as well as a single dose of dexamethasone. We will place the patient on a course of azithromycin as he is allergic to Augmentin with the main side effect being vomiting. Departure - Departure Disposition: 01 Home, Self Care Clinical Impression: Otitis media Qualifiers: Otitis media type: suppurative Chronicity: acute Laterality: bilateral Rec urrence: recurrent Spontaneous tympanic membrane rupture: without spontaneous rupture Qualified Code(s): H66.006 - Acute suppurative otitis media without spontaneous rupture of ear drum, recurrent, bilateral Condition: Stable Instructions: ED Otitis Media Acute Adult Follow-Up: Cinda Asher, RAJI [Primary Care Provider] - Prescriptions: Azithromycin [Zithromax] 250 mg PO DAILY #6 tablet
== END 2019-03-19 08:36 | disposition home or self-care (01) ==
LOC: ED 07:32
DX: H66.006 Acute suppurative otitis media without spontaneous rupture of ear drum, recurrent, bilateral (principal); J02.9 Acute pharyngitis, unspecified; N04.9 Nephrotic syndrome with unspecified morphologic changes; I10 Essential (primary) hypertension; F17.200 Nicotine dependence, unspecified, uncomplicated; Z88.0 Allergy status to penicillin
CPT/HCPCS: 87070; 87430; 96372; 99283

== ENCOUNTER 2019-04-03 12:33 | Outpatient (CLI) | payer MEDICAID | END 2019-04-03 12:34 | disposition home or self-care (01) | LOC: LAB 12:33 | PROVIDERS: ATTEND Nurse Practitioner Gerontology | DX: I74.8 Embolism and thrombosis of other arteries (principal) ==

== ENCOUNTER 2019-04-12 16:47 | Outpatient (CLI) | payer MEDICAID ==
[2019-04-12 17:28] LABS: CALCIUM 8.2 mg/dL (8.5-10.3)
[2019-04-12 19:26] LABS: CREATININE,URINE 38.8 mg/dL
== END 2019-04-12 16:48 | disposition home or self-care (01) ==
LOC: LAB 16:47
PROVIDERS: ATTEND Nurse Practitioner Gerontology
DX: N17.9 Acute kidney failure, unspecified (principal); N04.9 Nephrotic syndrome with unspecified morphologic changes
CPT/HCPCS: 36415; 80048; 81599; 82570; 84156; 84540; 85610

== ENCOUNTER 2019-11-20 11:06 | Outpatient (CLI) | payer MEDICAID ==
[2019-11-20 11:29] LABS: BILIRUBIN,URINE NEGATIVE (NEGATIVE); GLUCOSE, URINE (UA) NEGATIVE (NEGATIVE); KETONES,URINE (UA) NEGATIVE (NEGATIVE); LEUKOCYTE ESTERASE, URINE NEGATIVE (NEGATIVE); NITRITE,URINE NEGATIVE (NEGATIVE); OCCULT BLOOD,URINE TRACE-INTA (NEGATIVE); PROTEIN,URINE >=300 mg/dL (NEGATIVE); UROBILINOGEN,URINE 0.2 (NORMAL) E.U./dL (NORMAL)
[2019-11-20 11:29] LABS: BASOPHILS % (AUTO) 0.5 %; EOSINOPHILS # (AUTO) 0.2 10^3/uL (0.0-0.7); EOSINOPHILS % (AUTO) 2.1 %; HGB - HEMOGLOBIN 15.5 g/dL (14.0-18.0); LYMPHOCYTES # (AUTO) 1.6 10^3/uL (1.5-3.5); LYMPHOCYTES % (AUTO) 18.4 %; MEAN CORPUSCULAR HEMOGLOBIN 30.5 pg (27.0-31.0); MEAN CORPUSCULAR HGB CONC 33.2 g/dL (32.0-36.0); MEAN CORPUSCULAR VOLUME 91.7 fL (80.0-94.0); MEAN PLATELET VOLUME 9.5 fL (7.4-11.4); MONOCYTES # (AUTO) 0.5 10^3/uL (0.0-1.0); MONOCYTES % (AUTO) 5.3 %; NEUTROPHILS # (AUTO) 6.4 10^3/uL (1.5-6.6); NEUTROPHILS % (AUTO) 73.4 %; PLT - PLATELET COUNT 347 10^3/uL (130-450); RED BLOOD COUNT 5.09 10^6/uL (4.70-6.10); RED CELL DISTRIBUTION WIDTH 13.2 % (12.0-15.0); WHITE BLOOD COUNT 8.7 x10^3/uL (4.8-10.8)
[2019-11-20 11:40] LABS: BACTERIA,URINE Rare /HPF (None Seen); CASTS, URINE 3-5 Granular Casts /LPF; CLARITY,URINE CLEAR (CLEAR); RBC,URINE 0-5 /HPF (0-5); SQUAMOUS EPITHELIAL CELL,UR NONE SEEN (<= Few)
[2019-11-20 11:43] LABS: ALBUMIN 3.6 g/dL (3.2-5.5); CALCIUM 9.2 mg/dL (8.5-10.3); CREATININE 1.1 mg/dL (0.6-1.2); MAGNESIUM 1.8 mg/dL (1.7-2.8); PHOSPHORUS 2.8 mg/dL (2.5-4.6)
[2019-11-20 12:43] LABS: CREATININE,URINE 126.6 mg/dL; PROTEIN/CREATININE RATIO,URINE 4.2 (<=0.2)
== END 2019-11-20 11:07 | disposition home or self-care (01) ==
LOC: LAB 11:06
PROVIDERS: ATTEND Internal Medicine Nephrology
DX: N04.9 Nephrotic syndrome with unspecified morphologic changes (principal); I13.10 Hypertensive heart and chronic kidney disease without heart failure, with stage 1 through stage 4 chronic kidney disease, or unspecified chronic kidney disease; N18.2 Chronic kidney disease, stage 2 (mild)
CPT/HCPCS: 36415; 80069; 81001; 82570; 83735; 84156; 85025

== ENCOUNTER 2019-12-21 13:43 | Emergency (ER) | payer OTHER, MEDICAID ==
[2019-12-21 14:22] LABS: BASOPHILS % (AUTO) 0.6 %; EOSINOPHILS # (AUTO) 0.3 10^3/uL (0.0-0.7); EOSINOPHILS % (AUTO) 4.3 %; HGB - HEMOGLOBIN 15.9 g/dL (14.0-18.0); LYMPHOCYTES % (AUTO) 28.3 %; MEAN CORPUSCULAR HEMOGLOBIN 30.5 pg (27.0-31.0); MEAN CORPUSCULAR HGB CONC 33.5 g/dL (32.0-36.0); MEAN CORPUSCULAR VOLUME 90.8 fL (80.0-94.0); MEAN PLATELET VOLUME 9.3 fL (7.4-11.4); MONOCYTES # (AUTO) 0.6 10^3/uL (0.0-1.0); MONOCYTES % (AUTO) 8.3 %; NEUTROPHILS # (AUTO) 4.2 10^3/uL (1.5-6.6); NEUTROPHILS % (AUTO) 58.2 %; PLT - PLATELET COUNT 319 10^3/uL (130-450); RED BLOOD COUNT 5.22 10^6/uL (4.70-6.10); RED CELL DISTRIBUTION WIDTH 13.1 % (12.0-15.0); WHITE BLOOD COUNT 7.1 x10^3/uL (4.8-10.8)
[2019-12-21 14:36] LABS: ALBUMIN 3.4 g/dL (3.2-5.5); ALKALINE PHOSPHATASE 65 IU/L (42-121); ALT ALANINE AMINOTRANSFERASE 33 IU/L (10-60); AST ASPARTATE AMINOTRANSFERASE 29 IU/L (10-42); BILIRUBIN,TOTAL 0.7 mg/dL (0.2-1.0); BUN - BLOOD UREA NITROGEN 17 mg/dL (6-20); CALCIUM 8.9 mg/dL (8.5-10.3); CARBON DIOXIDE - CO2 29 mmol/L (21-32); CHLORIDE 98 mmol/L (101-111); CREATININE 1.2 mg/dL (0.6-1.2); GFR - MDRD 71 (>89); GLUCOSE 99 mg/dL (70-100); LIPASE 30 U/L (22-51); SODIUM 135 mmol/L (135-145); TOTAL PROTEIN 6.7 g/dL (6.7-8.2)
[2019-12-21] MEDS ORDERED: lisinopriL 5 MG TABLET PO STA (15:07)
[2019-12-21] MEDS ORDERED: LABETALOL 5 MG/1 ML 20 ML MDV IVP STA (15:07)
--- NOTE | 2019-12-21 15:10 | ED Physician Documentation ---
PD HPI FOCAL NEURO - Stated complaint Stated Complaint: HEADACHE - Chief complaint Chief Complaint: Neuro - History obtained from History obtained from: Patient (29-year-old gentleman with history of stroke and hypertension and nephrotic syndrome maintained on carvedilol, lisinopril, mycophenolate, and prednisone. He was out of his usual routine over the last week due to a family emergency and presented to long-term today for commitment. He d eveloped a gradual onset frontal headache last night consistent with prior episodes of hypertension. He notes that he did miss several doses of his antihypertensives during the last week. He denies chest pain or shortness of breath. No pedal edema. The only residual trouble from his prior stroke is an occasional diplopia which is currently active. But not new.) Review of Systems Ten Systems: 10 systems reviewed and negative Constitutional: denies: Fever, Chills Eyes: denies: Loss of vision, Decreased vision, Photophobia Ears: denies: Loss of hearing, Ear pain Nose: denies: Rhinorrhea / runny nose, Congestion Throat: denies: Dental pain / toothache, Sore throat Cardiac: denies: Chest pain / pressure, Palpitations Respiratory: denies: Dyspnea, Cough GI: denies: Abdominal Pain, Nausea, Vomiting PD PAST MEDICAL HISTORY - Past Medical History Past Medical History: Yes Cardiovascular: None, Hypertension, High cholesterol Respiratory: None Neuro: CVA Endocrine/Autoimmune: None : Renal insuffiency Psych: Anxiety, ADD/ADHD - Past Surgical History Past Surgical History: Yes General: Cholecystectomy, Other - Present Medications Home Medications: Ambulatory Orders Medication Instructions Recorded Confirmed lisinopriL [Zestril] 5 mg PO DAILY 01/09/17 01/25/19 Atorvastatin [Lipitor] 0 mg 12/21/19 Azithromycin [Zithromax] 1 tab PO DAILY #6 tablet 12/21/19 Carvedilol [Coreg] 6.25 mg PO 12/21/19 Lisinopril [Zestril] 10 mg PO 12/21/19 Mycophenolate Mofetil HCl 500 mg IV 12/21/19 [Mycophenolate Mofetil] predniSONE [Deltasone] 5 12/21/19 - Allergies Allergies/Adverse Reactions: Allergies Allergy/AdvReac Type Severity Reaction Status Date / Time ibuprofen Allergy Unknown Verified 12/21/19 13:59 amoxicillin [From Augmentin] AdvReac Nausea Verified 12/21/19 13:58 clavulanic acid AdvReac Nausea Verified 12/21/19 13:58 [From Augmentin] - Social History Does the pt smoke?: Yes Smoking Status: Current every day smoker Does the pt drink ETOH?: Yes Does the pt have substance abuse?: Yes - Immunizations Immunizations are current?: Yes Immunizations: TDAP current <10years - POLST Patient has POLST: No PD ED PE NORMAL - Vitals Vital signs reviewed: Yes - General General: Alert and oriented X 3, Other (He seems slightly agitated and is tachycardic and hypertensive) - HEENT HEENT: PERRL, Other (Some abduction of the left eye compared to the right and he does note his diplopia currently.) - Neck Neck: Supple, no meningeal sign, No bony TTP - Cardiac Cardiac: RRR, No murmur - Respiratory Respiratory: No respiratory distress, Clear bilaterally - Abdomen Abdomen: Non tender - Back Back: No CVA TTP, No spinal TTP - Neuro Neuro: Alert and oriented X 3, No motor deficit, No sensory deficit, Other (Cranial nerves other than the diplopia and external deviation of the left eye are normal, I was not tested.) Eye Opening: Spontaneous Motor: Obeys Commands Verbal: Oriented GCS Score: 15 - Psych Psych: Normal mood, Normal affect Results - Vitals Vitals: Vital Signs - 24 hr 12/21/19 12/21/19 12/21/19 13:56 14:27 15:26 Temperature 36.3 C L Heart Rate 127 H 114 H 93 Respiratory 18 17 18 Rate Blood Pressure 189/133 H 204/134 H 157/129 H O2 Saturation 99 99 99 Oxygen O2 Source Room air - Labs Labs: Laboratory Tests 12/21/19 12/21/19 12/21/19 14:16 14:16 14:16 WBC 7.1 RBC 5.22 Hgb 15.9 Hct 47.4 MCV 90.8 MCH 30.5 MCHC 33.5 RDW 13.1 Plt Count 319 MPV 9.3 Neut # (Auto) 4.2 Lymph # (Auto) 2.0 Pine # (Auto) 0.6 Eos # (Auto) 0.3 Baso # (Auto) 0.0 Absolute Nucleated RBC 0.00 Nucleated RBC % 0.0 Sodium 135 Potassium 3.6 Chloride 98 L Carbon Dioxide 29 Anion Gap 8.0 BUN 17 Creatinine 1.2 Estimated GFR (MDRD) 71 L Glucose 99 Calcium 8.9 Total Bilirubin 0.7 AST 29 ALT 33 Alkaline Phosphatase 65 Troponin I High Sens 6.4 Total Protein 6.7 Albumin 3.4 Globulin 3.3 Albumin/Globulin Ratio 1.0 Lipase 30 Urine Color Urine Clarity Urine pH Ur Specific [place] Urine Protein Urine Glucose (UA) Urine Ketones Urine Occult Blood Urine Nitrite Urine Bilirubin Urine Urobilinogen Ur Leukocyte Esterase Urine RBC Urine WBC Ur Squamous Epith Cells Urine Bacteria Urine Casts Urine Sperm Ur Microscopic Review Urine Culture Comments Urine Opiates Screen Ur Oxycodone Screen Urine Methadone Screen Ur Propoxyphene Screen Ur Barbiturates Screen Ur Tricyclics Screen Ur Phencyclidine Scrn Ur Amphetamine Screen U Methamphetamines Scrn U Benzodiazepines Scrn Urine Cocaine Screen U Cannabinoids Screen Ethyl Alcohol < 5.0 12/21/19 15:20 WBC RBC Hgb Hct MCV MCH MCHC RDW Plt Count MPV Neut # (Auto) Lymph # (Auto) Pine # (Auto) Eos # (Auto) Baso # (Auto) Absolute Nucleated RBC Nucleated RBC % Sodium Potassium Chloride Carbon Dioxide Anion Gap BUN Creatinine Estimated GFR (MDRD) Glucose Calcium Total Bilirubin AST ALT Alkaline Phosphatase Troponin I High Sens Total Protein Albumin Globulin Albumin/Globulin Ratio Lipase Urine Color YELLOW Urine Clarity CLEAR Urine pH 6.0 Ur Specific [place] 1.025 Urine Protein >=300 H Urine Glucose (UA) NEGATIVE Urine Ketones NEGATIVE Urine Occult Blood TRACE-LYSE Urine Nitrite NEGATIVE Urine Bilirubin NEGATIVE Urine Urobilinogen 0.2 (NORMAL) Ur Leukocyte Esterase NEGATIVE Urine RBC 0-5 Urine WBC 0-3 Ur Squamous Epith Cells NONE SEEN Urine Bacteria None Seen Urine Casts 6-10 Fine Granular Urine Sperm PRESENT Ur Microscopic Review INDICATED Urine Culture Comments NOT INDICATED Urine Opiates Screen NEGATIVE Ur Oxycodone Screen NEGATIVE Urine Methadone Screen NEGATIVE Ur Propoxyphene Screen NEGATIVE Ur Barbiturates Screen NEGATIVE Ur Tricyclics Screen NEGATIVE Ur Phencyclidine Scrn NEGATIVE Ur Amphetamine Screen POSITIVE H U Methamphetamines Scrn POSITIVE H U Benzodiazepines Scrn NEGATIVE Urine Cocaine Screen NEGATIVE U Cannabinoids Screen POSITIVE H Ethyl Alcohol PD MEDICAL DECISION MAKING - ED course ED course: 29-year-old gentleman with history of stroke and hypertension presents with headache and hypertension likely due to a combination of medical noncompliance and methamphetamine abuse which he denies using any of. Head CT showed no acute intracranial issues but some otitis issues, on reexamination at that time he had no tenderness over the mastoids but did have what looks like chronic severe otitis media with ruptures which he already knew about. His ears always bother him but not any more now than any other day. Case discussed by phone with Cici Santos. He received labetalol and lisinopril in the emergency department with improvement in his vital signs. Departure - Departure Disposition: 01 Home, Self Care Clinical Impression: Nonadherence to medication, Methamphetamine abuse Headache Qualifiers: Headache type: unspecified Headache chronicity pattern: acute headache Intractability: not intractable Qualified Code(s): R51 - Headache Chronic otitis media Qualifiers: Otitis media type: suppurative Laterality: bilateral Suppurative otitis media location: unspecified location Qualified Code(s): H66.3X3 - Other chronic suppurative otitis media, bilateral Hypertension Qualifiers: Hypertension type: secondary to other renal disorders Qualified Code(s): I15.1 - Hypertension secondary to other renal disorders; N28.89 - Other specified disorders of kidney and ureter Condition: Good Record reviewed to determine appropriate education?: Yes Instructions: ED Drug Abuse General, ED Headache Tension Prescriptions: Azithromycin [Zithromax] 1 tab PO DAILY #6 tablet Comments: You came to the emergency department today for elevated blood pressures and a headache. Your head CT showed the chronic issue with both ears and on examination there you have chronic otitis media with ruptures. You need to follow-up nonurgently with ear nose and throat physician for that. You should also follow-up with your perforator. Your creatinine today is pretty normal at 1.2. You do have proteinuria, but you always have protein in your urine so that is not a new phenomenon. Return for new or worsening symptoms. Avoid using methamphetamines and try to take your medications as prescribed. I did discuss the case with the long-term nurse practitioner, Cici Santos by phone.
[2019-12-21 15:26] LABS: MUDS CUTOFF CONCENTRATIONS CUTOFF CONC BELOW:
[2019-12-21 15:29] LABS: BILIRUBIN,URINE NEGATIVE (NEGATIVE); GLUCOSE, URINE (UA) NEGATIVE (NEGATIVE); KETONES,URINE (UA) NEGATIVE (NEGATIVE); LEUKOCYTE ESTERASE, URINE NEGATIVE (NEGATIVE); NITRITE,URINE NEGATIVE (NEGATIVE); OCCULT BLOOD,URINE TRACE-LYSE (NEGATIVE); PROTEIN,URINE >=300 mg/dL (NEGATIVE); UROBILINOGEN,URINE 0.2 (NORMAL) E.U./dL (NORMAL)
[2019-12-21 15:32] LABS: CLARITY,URINE CLEAR (CLEAR)
--- NOTE | 2019-12-21 15:37 | CT Report ---
Reason: headache Procedure Date: 12/21/2019 Accession Number: [id number] / [id number] Procedure: CT - HEAD WO CPT Code: Final Report FULL RESULT: EXAM: CT HEAD EXAM DATE: 12/21/2019 03:22 PM. CLINICAL HISTORY: Headache. COMPARISON: None. TECHNIQUE: Multiaxial CT images were obtained from the foramen magnum to the vertex. Reformats: Sagittal and coronal. IV contrast: None. In accordance with CT protocol optimization, one or more of the following dose reduction techniques were utilized for this exam: automated exposure control, adjustment of mA and/or KV based on patient size, or use of iterative reconstructive technique. FINDINGS: Parenchyma: No intraparenchymal hemorrhage. No evidence of mass, midline shift, or CT findings of infarction. Chauhan-white differentiation is distinct. Extraaxial Spaces: Normal for age. No subdural or epidural collections identified. Ventricles: Normal in size and position. Sinuses and Orbits: Bilateral mastoid air cell and middle ear opacification. Mild left ethmoid air cell opacification. Bones: No evidence of fracture or calvarial defect. Other: None. IMPRESSION: 1. No evidence for intracranial hemorrhage, mass or large recent infarct. 2. Nonspecific bilateral mastoid air cell and middle ear opacification. Question mastoiditis, chronic otitis media or cholesteatoma. Consider dedicated temporal bone CT if clinically warranted. RADIA
[2019-12-21 15:43] LABS: BACTERIA,URINE None Seen /HPF (None Seen); CASTS, URINE 6-10 Fine Granular /LPF; RBC,URINE 0-5 /HPF (0-5); SPERM,URINE PRESENT; SQUAMOUS EPITHELIAL CELL,UR NONE SEEN (<= Few)
[2019-12-21 15:44] LABS: AMPHETAMINE SCREEN,URINE POSITIVE (NEGATIVE); BENZODIAZEPINES SCREEN, URINE NEGATIVE (NEGATIVE); COCAINE SCREEN URINE NEGATIVE (NEGATIVE); METHADONE SCREEN, URINE NEGATIVE (NEGATIVE); METHAMPHETAMINES SCREEN, URINE POSITIVE (NEGATIVE); OPIATE SCREEN, URINE NEGATIVE (NEGATIVE); OXYCODONE SCREEN, URINE NEGATIVE (NEGATIVE); PROPOXYPHENE SCREEN, URINE NEGATIVE (NEGATIVE); TRICYCLIC ANTIDEPRESSANT,URINE NEGATIVE (NEGATIVE)
[2019-12-21 16:32] VITALS: BP 166/128
== END 2019-12-21 16:43 | disposition home or self-care (01) ==
LOC: EDUNIT# → ED 13:43
DX: F15.10 Other stimulant abuse, uncomplicated (principal); R51 Headache; I15.1 Hypertension secondary to other renal disorders; N28.89 Other specified disorders of kidney and ureter; N04.9 Nephrotic syndrome with unspecified morphologic changes; T46.5X6A Underdosing of other antihypertensive drugs, initial encounter; Z91.138 Patient's unintentional underdosing of medication regimen for other reason; H66.3X3 Other chronic suppurative otitis media, bilateral; H72.93 Unspecified perforation of tympanic membrane, bilateral; R00.0 Tachycardia, unspecified; I69.898 Other sequelae of other cerebrovascular disease; H53.2 Diplopia; F17.200 Nicotine dependence, unspecified, uncomplicated
CPT/HCPCS: 36415; 70450; 80053; 80320; 81001; 83690; 84484; 85025; 93005; 96374; 99284; A9270; 80306; 81003; 87086

== ENCOUNTER 2020-08-14 13:25 | Emergency (ER) | payer MEDICAID ==
--- NOTE | 2020-08-14 14:05 | ED Physician Documentation ---
History of Present Illness - Stated complaint Stated Complaint: SINUS PX - Chief complaint Chief Complaint: Heent - History obtained from History obtained from: Patient, Family - Additonal information Additional information: 30-year-old male presents to the emergency department with more than 2 months of right frontal and maxillary sinus congestion and pressure. 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 He does see an ear nose throat doctor and due to recurrent ear infections he did have a right tympanostomy tube placed about 2 months ago. At that time the patient's mom reports that the ear nose throat physician prescribed the "strongest antibiotics possible for a sinus infection." The patient does not feel that his congestion or pressure has improved. He does take a daily allergy medicine but does not do sinus rinses. He does have a history of nephrotic syndrome for which he takes CellCept. pt reports that he often has a bad taste in his mouth if he tastes his sinus drainage. pt does have a hx of htn and endorses that he forgot to take his BP medication last night and this am. mom later confirmed that he took azithromycin Review of Systems Constitutional: denies: Fever Eyes: reports: Reviewed and negative Ears: reports: Ear pain, Drainage/discharge (recent tympanostomy tube placement right ear) Nose: reports: Rhinorrhea / runny nose, Congestion, Reviewed and negative Throat: reports: Dental pain / toothache, Other (high hard palate; tonsils surgiclaly absent. Uvula bifurcated and midline). denies: Oral lesions / sores Cardiac: denies: Chest pain / pressure, Palpitations Respiratory: denies: Dyspnea, Cough GI: reports: Reviewed and negative : reports: Reviewed and negative Skin: reports: Reviewed and negative Musculoskeletal: reports: Reviewed and negative PD PAST MEDICAL HISTORY - Past Medical History Cardiovascular: None, Hypertension, High cholesterol Respiratory: None Neuro: CVA Endocrine/Autoimmune: None GI: None : Renal insuffiency Psych: Anxiety, ADD/ADHD Musculoskeletal: None Derm: None - Past Surgical History Past Surgical History: Yes General: Cholecystectomy, Other - Present Medications Home Medications: Ambulatory Orders Medication Instructions Recorded Confirmed lisinopriL [Zestril] 5 mg PO DAILY 01/09/17 01/25/19 Atorvastatin [Lipitor] 0 mg 12/21/19 Azithromycin [Zithromax] 1 tab PO DAILY #6 tablet 12/21/19 Carvedilol [Coreg] 6.25 mg PO 12/21/19 Lisinopril [Zestril] 10 mg PO 12/21/19 Mycophenolate Mofetil HCl 500 mg IV 12/21/19 [Mycophenolate Mofetil] predniSONE [Deltasone] 5 12/21/19 Cyclobenzaprine [Flexeril] 10 mg PO TID PRN #20 tablet 05/21/20 Tramadol HCl 1 tab PO Q6H PRN #10 tablet 05/21/20 Doxycycline Hyclate 100 mg PO BID #20 capsule 08/14/20 Sodium Chloride [Saline Nasal 90 ml NS BID #1 spray 08/14/20 [place]] - Allergies Allergies/Adverse Reactions: Allergies Allergy/AdvReac Type Severity Reaction Status Date / Time ibuprofen Allergy Unknown Verified 08/14/20 13:38 amoxicillin [From Augmentin] AdvReac Nausea Verified 08/14/20 13:38 clavulanic acid AdvReac Nausea Verified 08/14/20 13:38 [From Augmentin] - Social History Does the pt smoke?: Yes Smoking Status: Current every day smoker Does the pt drink ETOH?: Yes Does the pt have substance abuse?: Yes - Immunizations Immunizations are current?: Yes Immunizations: TDAP current <10years - POLST Patient has POLST: No PD ED PE EXPANDED - General General: Alert, No acute distress - HEENT HEENT: PERRL, EOMI, Other (high hard palate; tonsils surgiclaly absent. Uvula bifurcated and midline). No: Ears normal (tympanostomy tube right TM; left eac and tm unremarkable) - Neck Neck: Supple w/out meningeal sx. No: Adenopathy - Cardiac Cardiac: Regular Rate, Regular Rhythm - Respiratory Respiratory: Clear to ausultation sanjiv - Abdomen Abdomen: Normal Bowel sounds Results - Vitals Vitals: Vital Signs - 24 hr 08/14/20 13:29 Temperature 37.5 C Heart Rate 96 Respiratory 16 Rate Blood Pressure 182/127 H O2 Saturation 99 Oxygen O2 Source Room air - Labs Labs: Laboratory Tests 08/14/20 14:05 Sodium 136 Potassium 3.6 Chloride 100 L Carbon Dioxide 23 Anion Gap 13.0 BUN 19 Creatinine 1.1 Estimated GFR (MDRD) 78 L Glucose 96 Calcium 9.1 PD MEDICAL DECISION MAKING - ED course Complexity details: reviewed results, considered differential, d/w patient, d/w family ED course: 30-year-old male presents the emergency department with more than 2 months of right sinus pressure and congestion. He reports foul drainage. He was given a prescription for azithromycin through his emergency ENT doctor about 2 months ago. Does not feel that the symptoms are improved. The patient and his mom are very concerned that he has a bacterial sinus infection as he is immune suppressed on CellCept. I have encouraged the patient to do daily saline nasal rinses. If not improved after 4 to 5 days then he is to fill the prescription for doxycycline. I have encouraged him to follow very closely with ear nose throat MD Departure - Departure Disposition: Home, Self Care Clinical Impression: Sinus pressure Condition: Stable Record reviewed to determine appropriate education?: Yes Instructions: Sinuses Prescriptions: Doxycycline Hyclate 100 mg PO BID #20 capsule Sodium Chloride [Saline Nasal [place]] 90 ml NS BID #1 spray Comments: I have written a prescription for an antibiotic called doxycycline That you are to take only if saline nasal rinses do not improve your symptoms after 4 to 5 days. It is very important that you continue to follow-up with the ear nose th roat doctors for your concerns of a persistent sinus infection. I do recommend that you do a saline nasal rinse twice a day to see if that improves your symptoms. Following the saline rinse I would use Flonase nasal spray as well as the daily allergy medicine.
[2020-08-14 14:19] LABS: CALCIUM 9.1 mg/dL (8.5-10.3); CREATININE 1.1 mg/dL (0.6-1.2)
[2020-08-14 15:09] VITALS: BP 174/104
== END 2020-08-14 15:09 | disposition home or self-care (01) ==
LOC: ED 13:25
DX: J34.89 Other specified disorders of nose and nasal sinuses (principal); I10 Essential (primary) hypertension; F17.200 Nicotine dependence, unspecified, uncomplicated
CPT/HCPCS: 36415; 80048; 99283; 99284

== ENCOUNTER 2021-04-08 16:03 | Emergency (ER) | payer MEDICAID ==
[2021-04-08] MEDS ORDERED: IPRATROPIUM/ALBUTEROL 3 ML NEB INH STA (16:34)
--- NOTE | 2021-04-08 16:53 | XRAY Report ---
PROCEDURE: Chest 2 View X-Ray INDICATIONS: cough TECHNIQUE: 2 view(s) of the chest. COMPARISON: None. FINDINGS: Surgical changes and devices: None. Lungs and pleura: No pleural effusions or pneumothorax. Lungs are clear. Mediastinum: Mediastinal contours are normal. Heart size is normal. Bones and chest wall: No suspicious bony abnormalities. Soft tissues appear unremarkable. IMPRESSION: No acute cardiopulmonary pathology. Reviewed by: Lewis Farrell MD on 04/08/2021 4:51 PM PDT Approved by: Lewis Farrell MD on 04/08/2021 4:51 PM PDT Station ID: [id number]
--- NOTE | 2021-04-08 16:57 | ED Physician Documentation ---
PD HPI URI - Stated complaint Stated Complaint: COUGH/SOA/HEADACHE - Chief complaint Chief Complaint: Resp - History obtained from History obtained from: Patient - History of Present Illness Timing - onset: How many weeks ago (2) Timing duration: Weeks (2) Timing details: Gradual onset Pain level max: 3 Pain level now: 3 Associated symptoms: Chills, Nasal congestion, Rhinorrhea, Sore throat, Dry cough, Dyspnea. No: Fever, Hemoptysis, Chest pain Contributing factors: Sick contact, Immunocompromised (Patient has a history of nephrotic syndrome, is on chronic prednisone and Mycophenolate) Improves by: Rest - Additional information Additional information: Patient does not smoke but he does vape. Review of Systems GI: denies: Nausea, Vomiting, Diarrhea Musculoskeletal: denies: Neck pain, Back pain Neurologic: denies: Headache PD PAST MEDICAL HISTORY - Past Medical History Past Medical History: Yes Cardiovascular: None, Hypertension, High cholesterol Respiratory: None Neuro: CVA Endocrine/Autoimmune: None GI: None : Renal insuffiency Psych: Anxiety, ADD/ADHD Musculoskeletal: None Derm: None - Past Surgical History Past Surgical History: Yes General: Cholecystectomy, Other - Present Medications Home Medications: Ambulatory Orders Medication Instructions Recorded Confirmed Atorvastatin [Lipitor] 40 mg PO DAILY 12/21/19 04/08/21 Carvedilol [Coreg] 6.25 mg PO DAILY 12/21/19 04/08/21 Lisinopril [Zestril] 20 mg PO DAILY 12/21/19 04/08/21 Albuterol Sulf [Ventolin Hfa 1 - 2 puffs INH Q4HR PRN #1 inhaler 04/08/21 Inhaler] Benzonatate [Tessalon] 200 mg PO TID PRN #30 cap 04/08/21 Doxycycline Hyclate 100 mg PO BID #20 04/08/21 mycophenolate mofetiL 1,000 mg PO DAILY 04/08/21 04/08/21 [Mycophenolate Mofetil] - Allergies Allergies/Adverse Reactions: Allergies Allergy/AdvReac Type Severity Reaction Status Date / Time ibuprofen Allergy Unknown Verified 04/08/21 16:17 amoxicillin [From Augmentin] AdvReac Nausea Verified 04/08/21 16:17 clavulanic acid AdvReac Nausea Verified 04/08/21 16:17 [From Augmentin] - Social History Does the pt smoke?: Yes Smoking Status: Current every day smoker Does the pt drink ETOH?: Yes Does the pt have substance abuse?: Yes - Immunizations Immunizations are current?: Yes Immunizations: TDAP current <10years - POLST Patient has POLST: No PD ED PE NORMAL - Vitals Vital signs reviewed: Yes - General General: Alert and oriented X 3, No acute distress, Well developed/nourished - HEENT HEENT: PERRL, Moist mucous membranes - Neck Neck: Supple, no meningeal sign - Cardiac Cardiac: RRR, Strong equal pulses - Respiratory Respiratory: No respiratory distress, Other (Mild wheezing and diminished breath sounds bilaterally) - Abdomen Abdomen: Soft, Non tender, Non distended - Derm Derm: Warm and dry, No rash - Extremities Extremities: No edema, No calf tenderness / cord - Neuro Neuro: Alert and oriented X 3 - Psych Psych: Normal mood, Normal affect Results - Vitals Vitals: Vital Signs - 24 hr 04/08/21 04/08/21 04/08/21 16:14 16:49 17:45 Temperature 36.6 C Heart Rate 83 80 84 Respiratory 16 24 16 Rate Blood Pressure 179/118 H 177/105 H O2 Saturation 98 95 Oxygen O2 Source Room air - Labs Labs: Laboratory Tests 04/08/21 16:35 Nasal Adenovirus (PCR) NOT DETECTED Nasal B. parapertussis DNA (PCR) NOT DETECTED Nasal Coronavir 229E PCR NOT DETECTED Nasal Coronavir HKU1 PCR NOT DETECTED Nasal Coronavir NL63 PCR NOT DETECTED Nasal Coronavir OC43 PCR NOT DETECTED Nasal Enterovir/Rhinovir PCR NOT DETECTED Nasal Influenza B PCR NOT DETECTED Nasal Influenza A PCR NOT DETECTED Nasal Parainfluen 1 PCR NOT DETECTED Nasal Parainfluen 2 PCR NOT DETECTED Nasal Parainfluen 3 PCR NOT DETECTED Nasal Parainfluen 4 PCR NOT DETECTED Nasal RSV (PCR) NOT DETECTED Nasal B.pertussis DNA PCR NOT DETECTED Nasal C.pneumoniae (PCR) NOT DETECTED Jacob Human Metapneumo PCR NOT DETECTED Nasal M.pneumoniae (PCR) NOT DETECTED Nasal SARS-CoV-2 (PCR) NOT DETECTED - Rads (name of study) Chest x-ray Radiology: Prelim report reviewed, EMP read contemporaneously, See rad report (No acute cardiopulmonary disease) PD MEDICAL DECISION MAKING - ED course Complexity details: reviewed results, re-evaluated patient, considered differential, d/w patient ED course: 30-year-old male with what appears to be a viral upper respiratory infection. He is well-appearing, nontoxic. Afebrile. No hypoxia. No respiratory distress. He is immunocompromised. Feels better after albuterol treatment. Given his immunocompromise state and 2-week duration of symptoms, will trial on doxycycline as well. Patient counseled regarding signs and symptoms for which I believe and urgent re-evaluation would be necessary. Patient with good understanding of and agreement to plan and is comfortable going home at this time This document was made in part using voice recognition software. While efforts are made to proofread this document, sound alike and grammatical errors may occur. Departure - Departure Disposition: Home, Self Care Clinical Impression: Bronchitis Condition: Good Instructions: ED Upper Resp Infec Abx Tx Follow-Up: Your,doctor in 1 week [Other] Prescriptions: Albuterol Sulf [Ventolin Hfa Inhaler] 1 - 2 puffs INH Q4HR PRN #1 inhaler PRN Reason: Shortness Of Air/Wheezing Doxycycline Hyclate 100 mg PO BID #20 Benzonatate [Tessalon] 200 mg PO TID PRN #30 cap PRN Reason: Cough Comments: Return if you worsen. Follow-up with your doctor for further care. Your x-ray does not show any acute abnormalities today. Discharge Date/Time: 04/08/21 17:46
[2021-04-08 17:31] LABS: B. PARAPERTUSSIS- RESP PCR PAN NOT DETECTED; B. PERTUSSIS- RESP PCR PANEL NOT DETECTED; C. PNEUMONIAE- RESP PCR PANEL NOT DETECTED; CORONAVIRUS 229E-RESP PCR NOT DETECTED; CORONAVIRUS HKU1-RESP PCR NOT DETECTED; CORONAVIRUS NL63-RESP PCR NOT DETECTED; CORONAVIRUS OC43-RESP PCR NOT DETECTED; HUMAN METAPNEUMOVIRUS NOT DETECTED; INFLUENZA A- RESP PCR PANEL NOT DETECTED; INFLUENZA B - RESP PCR PANEL NOT DETECTED; M. PNEUMONIAE- RESP PCR PANEL NOT DETECTED; PARAINFLUENZA VIRUS 1 NOT DETECTED; PARAINFLUENZA VIRUS 2 NOT DETECTED; PARAINFLUENZA VIRUS 3 NOT DETECTED; PARAINFLUENZA VIRUS 4 NOT DETECTED; RHINOVIRUS/ENTEROVIRUS NOT DETECTED; RSV- RESP PCR PANEL NOT DETECTED; SARS-CoV-2 -RESP PCR PANEL NOT DETECTED
[2021-04-08 17:46] VITALS: BP 177/105
== END 2021-04-08 17:46 | disposition home or self-care (01) ==
LOC: ED 16:03
DX: J40 Bronchitis, not specified as acute or chronic (principal); F17.290 Nicotine dependence, other tobacco product, uncomplicated; Z20.822 Contact with and (suspected) exposure to COVID-19; D84.9 Immunodeficiency, unspecified; N04.9 Nephrotic syndrome with unspecified morphologic changes; Z79.52 Long term (current) use of systemic steroids; I10 Essential (primary) hypertension
CPT/HCPCS: 0202U; 71046; 94640; 99283

== ENCOUNTER 2021-07-04 15:37 | Emergency (ER) | payer MEDICAID ==
--- NOTE | 2021-07-04 16:58 | XRAY Report ---
PROCEDURE: Elbow 3 View LT INDICATIONS: Olecranon swelling pain TECHNIQUE: 3 views of the elbow were acquired. COMPARISON: None. FINDINGS: Bones: No fractures or dislocations. No suspicious bony lesions. Soft tissues: Mild swelling posterior to the olecranon. No radiopaque foreign body. No posterior elb ow joint effusion. No suspicious soft tissue calcifications. IMPRESSION: No acute osseous abnormality. Reviewed by: Darrell Kirby MD on 07/04/2021 3:57 PM LY[facility] Approved by: Darrell Kirby MD on 07/04/2021 3:57 PM LYNN Station ID: [id number]
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
[2021-07-04 18:12] VITALS: BP 190/120
== END 2021-07-04 18:12 | disposition home or self-care (01) ==
LOC: ED 15:37
DX: S50.02XA Contusion of left elbow, initial encounter (principal); X58.XXXA Exposure to other specified factors, initial encounter; I10 Essential (primary) hypertension; F17.200 Nicotine dependence, unspecified, uncomplicated
CPT/HCPCS: 99283; 99284

== ENCOUNTER 2021-09-17 08:00 | Outpatient (CLI) | payer MEDICAID ==
[2021-09-17 11:21] LABS: BILIRUBIN,URINE NEGATIVE (NEGATIVE); GLUCOSE, URINE (UA) NEGATIVE (NEGATIVE); KETONES,URINE (UA) NEGATIVE (NEGATIVE); LEUKOCYTE ESTERASE, URINE NEGATIVE (NEGATIVE); NITRITE,URINE NEGATIVE (NEGATIVE); OCCULT BLOOD,URINE NEGATIVE (NEGATIVE); PH,URINE 6.5 PH (5.0-7.5); PROTEIN,URINE 30 mg/dL (NEGATIVE); UROBILINOGEN,URINE 0.2 (NORMAL) E.U./dL (NORMAL)
[2021-09-17 11:23] LABS: BASOPHILS # (AUTO) 0.1 10^3/uL (0.0-0.1); BASOPHILS % (AUTO) 0.7 %; EOSINOPHILS # (AUTO) 1.1 10^3/uL (0.0-0.7); HCT - HEMATOCRIT 46.6 % (42.0-52.0); HGB - HEMOGLOBIN 15.5 g/dL (14.0-18.0); LYMPHOCYTES # (AUTO) 1.8 10^3/uL (1.5-3.5); LYMPHOCYTES % (AUTO) 25.6 %; MEAN CORPUSCULAR HEMOGLOBIN 32.2 pg (27.0-31.0); MEAN CORPUSCULAR HGB CONC 33.3 g/dL (32.0-36.0); MEAN CORPUSCULAR VOLUME 96.9 fL (80.0-94.0); MEAN PLATELET VOLUME 10.1 fL (7.4-11.4); MONOCYTES # (AUTO) 0.5 10^3/uL (0.0-1.0); MONOCYTES % (AUTO) 6.8 %; NEUTROPHILS # (AUTO) 3.6 10^3/uL (1.5-6.6); NEUTROPHILS % (AUTO) 50.8 %; PLT - PLATELET COUNT 345 10^3/uL (130-450); RED BLOOD COUNT 4.81 10^6/uL (4.70-6.10); RED CELL DISTRIBUTION WIDTH 13.2 % (12.0-15.0)
[2021-09-17 11:33] LABS: CLARITY,URINE CLEAR (CLEAR)
[2021-09-17 11:34] LABS: ALBUMIN 3.7 g/dL (3.2-5.5); BILIRUBIN,TOTAL 0.6 mg/dL (0.2-1.0); CALCIUM 9.2 mg/dL (8.5-10.3); POTASSIUM 4.5 mmol/L (3.5-5.0); TOTAL PROTEIN 7.4 g/dL (6.7-8.2)
[2021-09-17 11:55] LABS: PLATELET ESTIMATE, MANUAL NORMAL (130-450,000) (NORMAL); PLATELET MORPHOLOGY NORMAL APPEARANCE (NORMAL); RBC MORPHOLOGY (MULTIPLE) NORMAL APPEARANCE (NORMAL)
[2021-09-17 11:56] LABS: DIFFERENTIAL COMMENT MANUAL=AUTO DIFF
== END 2021-09-17 23:59 | disposition home or self-care (01) ==
LOC: LAB.R 08:00
PROVIDERS: ATTEND Registered Nurse
DX: R79.89 Other specified abnormal findings of blood chemistry (principal); R68.89 Other general symptoms and signs; R82.90 Unspecified abnormal findings in urine
CPT/HCPCS: 80053; 81003; 85025

== ENCOUNTER 2022-02-12 08:40 | Emergency (ER) | payer MEDICAID ==
--- NOTE | 2022-02-12 09:26 | ED Physician Documentation ---
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 Took BP and it was elevated. No focal weaknesses. No recent injury.) Location: Left Quality: Throbbing Associated symptoms: Nausea, Vomiting, Vision changes (some blurring of vision and light sensitive.). No: Fever, Stiff neck, Weakness, Numbness Improved by: No: Rest, Meds (tried tylenol at home.) Worsened by: Light Contributing factors: Hypertension. No: Anticoagulated, Recent illness, Trauma Similar symptoms before: Has not had sx before (occasional migraine headaches, takes Excedrin migraine and rests in dark room for rest of the day, when these occur. No Rx meds. CUrrent headache similar but worse severity than prior.) Recently seen: Not recently seen Review of Systems Constitutional: denies: Fever, Chills Nose: reports: Congestion, Sinus pressure / pain. denies: Rhinorrhea / runny nose Throat: denies: Sore throat Respiratory: denies: Cough GI: reports: Nausea, Vomiting. denies: Abdominal Pain, Diarrhea Skin: denies: Rash, Lesions Neurologic: reports: Headache. denies: Focal weakness, Numbness, Altered mental status, Head injury PD PAST MEDICAL HISTORY - Past Medical History Cardiovascular: Hypertension, High cholesterol Respiratory: None Neuro: CVA, Migraines Endocrine/Autoimmune: None GI: None : Renal insuffiency Psych: Anxiety, ADD/ADHD Musculoskeletal: Other Derm: None Other Past Medical History: Nephrotic syndrome - Past Surgical History Past Surgical History: Yes General: Cholecystectomy, Other - Present Medications Home Medications: Ambulatory Orders Medication Instructions Recorded Confirmed Atorvastatin [Lipitor] 40 mg PO DAILY 12/21/19 02/12/22 Lisinopril [Zestril] 20 mg PO DAILY 12/21/19 02/12/22 Albuterol Sulf [Ventolin Hfa 1 - 2 puffs INH Q4HR PRN #1 inhaler 04/08/21 07/04/21 Inhaler] mycophenolate mofetiL 1,000 mg PO DAILY 04/08/21 02/12/22 [Mycophenolate Mofetil] HYDROcod/ACETAM 5/325 [[place] 5/325] 1 - 2 tablet PO Q6H PRN #14 tablet 07/04/21 Prednisone [Norah] 5 mg PO DAILY 07/04/21 07/04/21 Ondansetron Odt [Zofran] 4 mg TL Q6H PRN #10 tablet 02/12/22 Sumatriptan Succinate [Imitrex] 50 mg PO BID PRN #10 tablet 02/12/22 carvediloL [Coreg] 6.25 mg PO BID 02/12/22 02/12/22 - Allergies Allergies/Adverse Reactions: Allergies Allergy/AdvReac Type Severity Reaction Status Date / Time ibuprofen Allergy Unknown Verified 02/12/22 08:55 amoxicillin [From Augmentin] AdvReac Nausea Verified 02/12/22 08:55 clavulanic acid AdvReac Nausea Verified 02/12/22 08:55 [From Augmentin] - Social History Does the pt smoke?: No Smoking Status: Never smoker Does the pt drink ETOH?: Yes Does the pt have substance abuse?: No - Immunizations Immunizations are current?: Yes Immunizations: TDAP current <10years - POLST Patient has POLST: No PD ED PE NORMAL - Vitals Vital signs reviewed: Yes - General General: Alert and oriented X 3, Well developed/nourished, Other (appears in pain due to headache. Still conversant and interactive. ) - HEENT HEENT: PERRL, EOMI (light sensitive. 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 Sinus congestion/opacification frontal and maxillary. ), See rad report PD MEDICAL DECISION MAKING - ED course Complexity details: reviewed results (sinus fluid and congestion on CT. NO ICH. He has had some sinus pressure feeling but no fever, sore throat, purulent drainage, so not seeming sinus bacterial infection. Current headache seems migraine. ), re-evaluated patient (headache improved with IV meds c/w migraine. BP improved with pain improvement.), considered differential (He is improved with medication and fluid targeting migraine (Toradol and Inapsine). ), d/w patient Departure - Departure Disposition: 01 Home, Self Care Clinical Impression: Congestion of nasal sinus Headache, acute Qualifiers: Headache type: unspecified Intractability: not intractable Qualified Code(s): R51.9 - Headache, unspecified Condition: Stable Record reviewed to determine appropriate education?: Yes Instructions: ED Headache Migraine Prescriptions: Sumatriptan Succinate [Imitrex] 50 mg PO BID PRN #10 tablet PRN Reason: Migraine Ondansetron Odt [Zofran] 4 mg TL Q6H PRN #10 tablet PRN Reason: Nausea / Vomiting Comments: Your head scan does not show any acute abnormality such as bleeding, swelling, tumors. I presume your headache was a vascular/migraine type headache. Tylenol if needed for pains. For subsequent headaches, you could try combination of ondansetron for nausea and sumatriptan migraine medicine and see if that helps. I prescribed some of these for you and transmitted them to [facility] pharmacy. Here in the emergency room today you did receive an anti-inflammatory called ketorolac and a nausea medicine called droperidol. You also received 1 dose of hydromorphone pain medicine 1 mg. Discharge Date/Time: 02/12/22 12:24
[2022-02-12] MEDS: SODIUM CHLORIDE 0.9% 1,000 ML IV STA (10:20)
[2022-02-12 10:26] LABS: ALBUMIN 3.4 g/dL (3.2-5.5); BILIRUBIN,TOTAL 0.6 mg/dL (0.2-1.0); CALCIUM 8.8 mg/dL (8.5-10.3); POTASSIUM 4.1 mmol/L (3.5-5.0); TOTAL PROTEIN 6.9 g/dL (6.7-8.2)
[2022-02-12] MEDS: KETOROLAC 30 MG/ML VIAL IVP STA (10:27)
[2022-02-12] MEDS: DROPERIDOL 5 MG/2 ML VIAL IVP STA (10:28)
[2022-02-12] MEDS: HYDROmorphone 1 MG/ML CARPUJECT IVP STA (11:19)
--- NOTE | 2022-02-12 11:27 | CT Report ---
PROCEDURE: HEAD WO INDICATIONS: headache abrupt overnight TECHNIQUE: Noncontrast 4.5 mm thick angled axial sections acquired from the foramen magnum to the vertex. For r adiation dose reduction, the following was used: automated exposure control, adjustment of mA and/or kV according to patient size. COMPARISON: CT head 12/21/2019. FINDINGS: Image quality: Excellent. CSF spaces: Basal cisterns are patent. No extra-axial fluid collections. Ventricles are normal in size and shape. Brain: No intracranial hemorrhage, mass, or mass effect. Chauhan-white matter interface appears preser trip. Skull and face: Calvarium and visualized facial bones are intact, without suspicious lesions. Sinuses: Visualized sinuses demonstrate near complete mucosal opacification of the bilateral frontal and ethmoid sinuses as well as complete opacification of the visualized sphenoid sinuses. The maxill raheem sinuses are not included on the current study. The mastoid air cells are clear. IMPRESSION: 1. No acute intracranial abnormality. 2. Severe sinus mucosal disease with near-complete mucosal opacification of the frontal and ethmoid s inuses as well as complete opacification of the sphenoid sinuses. Reviewed by: Nahun Montez MD on 02/12/2022 11:25 AM PDT Approved by: Nahun Montez MD on 02/12/2022 11:25 AM PDT Station ID: [id number]
[2022-02-12 12:26] VITALS: BP 114/75
== END 2022-02-12 12:24 | disposition home or self-care (01) ==
LOC: ED 08:40
DX: R51.9 Headache, unspecified (principal); R09.81 Nasal congestion
CPT/HCPCS: 36415; 70450; 80053; 83690; 96374; 96375; 99284; J1170

== ENCOUNTER 2023-10-28 22:59 | Inpatient (IN) | payer MEDICAID, OTHER ==
[2023-10-28] MEDS ORDERED: LABETALOL 20 MG/4 ML SYRINGE IVP STA (23:57)
[2023-10-29 00:15] LABS: BASOPHILS # (AUTO) 0.1 10^3/uL (0.0-0.1); BASOPHILS % (AUTO) 0.4 %; EOSINOPHILS # (AUTO) 0.1 10^3/uL (0.0-0.7); EOSINOPHILS % (AUTO) 0.8 %; HCT - HEMATOCRIT 45.2 % (42.0-52.0); HGB - HEMOGLOBIN 15.9 g/dL (14.0-18.0); LYMPHOCYTES # (AUTO) 2.2 10^3/uL (1.5-3.5); LYMPHOCYTES % (AUTO) 16.3 %; MEAN CORPUSCULAR HEMOGLOBIN 31.9 pg (27.0-31.0); MEAN CORPUSCULAR HGB CONC 35.2 g/dL (32.0-36.0); MEAN CORPUSCULAR VOLUME 90.8 fL (80.0-94.0); MEAN PLATELET VOLUME 9.5 fL (7.4-11.4); MONOCYTES % (AUTO) 7.6 %; NEUTROPHILS % (AUTO) 74.6 %; PLT - PLATELET COUNT 329 10^3/uL (130-450); RED BLOOD COUNT 4.98 10^6/uL (4.70-6.10); RED CELL DISTRIBUTION WIDTH 12.7 % (12.0-15.0); WHITE BLOOD COUNT 13.4 x10^3/uL (4.8-10.8)
[2023-10-29 00:36] LABS: ALBUMIN 3.8 g/dL (3.2-5.5); ALBUMIN/GLOBULIN RATIO 1.2 (1.0-2.2); BILIRUBIN,TOTAL 0.4 mg/dL (0.2-1.0); CALCIUM 8.6 mg/dL (8.5-10.3); CREATININE 1.4 mg/dL (0.6-1.3); ETOH - ETHANOL 87.8 mg/dL; POTASSIUM 3.7 mmol/L (3.5-4.5); TOTAL PROTEIN 7.1 g/dL (6.4-8.9)
[2023-10-29] MEDS ORDERED: ONDANSETRON 4 MG/2 ML VIAL IVP STA ×2 (00:47→03:35)
[2023-10-29] MEDS ORDERED: MORPHINE 2 MG/ML CARPUJECT IVP STA ×2 (00:52→03:35)
[2023-10-29] MEDS ORDERED: LABETALOL 20 MG/4 ML SYRINGE IVP STA (00:52)
[2023-10-29 01:14] LABS: BILIRUBIN,URINE NEGATIVE (NEGATIVE); GLUCOSE, URINE (UA) NEGATIVE (NEGATIVE); KETONES,URINE (UA) NEGATIVE (NEGATIVE); LEUKOCYTE ESTERASE, URINE NEGATIVE (NEGATIVE); NITRITE,URINE NEGATIVE (NEGATIVE); OCCULT BLOOD,URINE SMALL (NEGATIVE); PROTEIN,URINE >=300 mg/dL (NEGATIVE); UROBILINOGEN,URINE 0.2 (NORMAL) E.U./dL (NORMAL)
[2023-10-29 01:40] LABS: CLARITY,URINE CLEAR (CLEAR)
[2023-10-29 01:41] LABS: RBC,URINE 0-5 /HPF (0-5); WBC,URINE 0-3 /HPF (0-3)
[2023-10-29 01:42] LABS: AMPHETAMINE SCREEN,URINE NEGATIVE (NEGATIVE); BACTERIA,URINE None Seen /HPF (None Seen); BARBITURATE SCREEN,UR NEGATIVE (NEGATIVE); BENZODIAZEPINES SCREEN, URINE NEGATIVE (NEGATIVE); BUPRENORPHINE SCREEN, URINE NEGATIVE (NEGATIVE); COCAINE SCREEN URINE NEGATIVE (NEGATIVE); METHADONE SCREEN, URINE NEGATIVE (NEGATIVE); METHAMPHETAMINES SCREEN, URINE NEGATIVE (NEGATIVE); OPIATE SCREEN, URINE NEGATIVE (NEGATIVE); OXYCODONE SCREEN, URINE NEGATIVE (NEGATIVE); SQUAMOUS EPITHELIAL CELL,UR NONE SEEN (<= Few); THC CANNABINOID SCREEN, URINE POSITIVE (NEGATIVE); TRICYCLIC ANTIDEPRESSANT,URINE NEGATIVE (NEGATIVE)
--- NOTE | 2023-10-29 01:50 | CT Report ---
PROCEDURE: Head WO INDICATIONS: severe CERVANTES, severe HTN TECHNIQUE: Noncontrast 4.5 mm thick angled axial sections acquired from the foramen magnum to the vertex. For r adiation dose reduction, the following was used: automated exposure control, adjustment of mA and/or kV according to patient size. COMPARISON: CT head 02/12/2022. FINDINGS: Image quality: Excellent. CSF spaces: Basal cisterns are patent. No extra-axial fluid collections. Ventricles are normal in size and shape. Brain: No midline shift. Old lacunar infarct within the left basal ganglia. No intracranial masses o r hemorrhage. Chauhan-white matter interface is normal. Skull and face: Calvarium and visualized facial bones are intact, without suspicious lesions. Sinuses: Mucosal thickening of the paranasal sinuses, worse within the ethmoid air cells. Hypoplastic opacified left mastoid air cells. Mastoid air cells are clear. IMPRESSION: No acute intracranial pathology. Reviewed by: Umer Graham MD on 10/29/2023 1:49 AM PST Approved by: Umer Graham MD on 10/29/2023 1:49 AM PST Station ID: [id number]
--- NOTE | 2023-10-29 02:30 | ED Physician Documentation ---
History of Present Illness - Stated complaint Stated Complaint: HTN - Chief complaint Chief Complaint: Cardiac - History obtained from History obtained from: Patient - Additonal information Additional information: Patient arrives from assisted, brought to ED by police. Patient was arrested earlier this evening, but was found to be hypertensive at the assisted and was complaining of headache, nausea and vomiting; he is thus brought to the ED for evaluation. The patient tells me that he has a diagnosis of high blood pressure/hypertension, is on blood pressure medications but does not know which ones. He is not clear as to compliance, telling me that he thinks he missed 1 or 2 doses but otherwise says he has been taking his medications as prescribed. Patient says that he has history of CVA x 2; he does not know if the strokes were due to thrombosis or bleeding. He says he was treated for these at [facility]. His past medical history also includes nephrotic syndrome for which he is on CellCept; he says that he was on prednisone, but "it was no longer working" (per patient), and thus has been tried on other medications, most recently mycophenolate. Patient is complaining of nausea, generalized severe headache. He denies numbness, weakness, visual changes, chest pain, shortness of breath. He denies drug use, specifically denies methamphetamine use and cocaine use (I asked him about these specifically). He admits to drinking alcohol earlier this evening. Review of Systems Eyes: reports: Reviewed and negative Cardiac: reports: Reviewed and negative Respiratory: reports: Reviewed and negative GI: reports: Nausea, Vomiting. denies: Abdominal Pain Neurologic: reports: Headache. denies: Generalized weakness, Focal weakness, Numbness, Confused, Altered mental status PD PAST MEDICAL HISTORY - Past Medical History Past Medical History: Yes Cardiovascular: Hypertension, High cholesterol Respiratory: None Neuro: CVA, Migraines Endocrine/Autoimmune: None GI: None : Renal insuffiency Psych: Anxiety, ADD/ADHD Musculoskeletal: Other Derm: None - Past Surgical History Past Surgical History: Yes General: Cholecystectomy, Other - Present Medications Home Medications: Ambulatory Orders Medication Instructions Recorded Confirmed Atorvastatin [Lipitor] 40 mg PO DAILY 12/21/19 02/12/22 Lisinopril [Zestril] 20 mg PO DAILY 12/21/19 02/12/22 Albuterol Sulf [Ventolin Hfa 1 - 2 puffs INH Q4HR PRN #1 inhaler 04/08/21 07/04/21 Inhaler] mycophenolate mofetiL 1,000 mg PO DAILY 04/08/21 02/12/22 [Mycophenolate Mofetil] HYDROcod/ACETAM 5/325 [[place] 5/325] 1 - 2 tablet PO Q6H PRN #14 tablet 07/04/21 Prednisone [Norah] 5 mg PO DAILY 07/04/21 07/04/21 Ondansetron Odt [Zofran] 4 mg TL Q6H PRN #10 tablet 02/12/22 Sumatriptan Succinate [Imitrex] 50 mg PO BID PRN #10 tablet 02/12/22 carvediloL [Coreg] 6.25 mg PO BID 02/12/22 02/12/22 - Allergies Allergies/Adverse Reactions: Allergies Allergy/AdvReac Type Severity Reaction Status Date / Time ibuprofen Allergy Unknown Verified 10/28/23 23:02 amoxicillin [From Augmentin] AdvReac Nausea Verified 10/28/23 23:02 clavulanic acid AdvReac Nausea Verified 10/28/23 23:02 [From Augmentin] - Social History Does the pt smoke?: No Smoking Status: Never smoker Does the pt drink ETOH?: Yes Does the pt have substance abuse?: No - Immunizations Immunizations are current?: Yes Immunizations: TDAP current <10years - POLST Patient has POLST: No PD ED PE NORMAL - Vitals Vital signs reviewed: Yes - General General: Alert and oriented X 3, Well developed/nourished, Other (appears uncomfortable ) - HEENT HEENT: PERRL, EOMI - Neck Neck: Supple, no meningeal sign - Cardiac Cardiac: RRR, No murmur - Respiratory Respiratory: No respiratory distress, Clear bilaterally - Abdomen Abdomen: Soft, Non tender - Derm Derm: Normal color, Warm and dry - Extremities Extremities: No edema - Neuro Neuro: Alert and oriented X 3, 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, No motor deficit, No sensory deficit, Normal speech Eye Opening: Spontaneous Motor: Obeys Commands Verbal: Oriented GCS Score: 15 Results - Vitals Vitals: Vital Signs - 24 hr 10/28/23 10/29/23 10/29/23 23:02 00:13 00:22 Temperature 36.8 C Heart Rate 110 H 92 94 Respiratory 24 15 26 H Rate Blood Pressure 220/150 H 197/126 H 205/140 H O2 Saturation 98 94 95 10/29/23 10/29/23 10/29/23 00:31 01:06 02:49 Temperature Heart Rate 92 92 89 Respiratory 18 15 Rate Blood Pressure 192/135 H 153/104 H 156/122 H O2 Saturation 97 96 10/29/23 03:12 Temperature Heart Rate 72 Respiratory Rate Blood Pressure 166/118 H O2 Saturation Oxygen O2 Source Room air - Labs Labs: Laboratory Tests 10/29/23 10/29/23 10/29/23 00:06 00:06 01:08 WBC 13.4 H RBC 4.98 Hgb 15.9 Hct 45.2 MCV 90.8 MCH 31.9 H MCHC 35.2 RDW 12.7 Plt Count 329 MPV 9.5 Neut # (Auto) 10.0 H Lymph # (Auto) 2.2 [place] # (Auto) 1.0 Eos # (Auto) 0.1 Baso # (Auto) 0.1 Absolute Nucleated RBC 0.00 Nucleated RBC % 0.0 Sodium 134 L Potassium 3.7 Chloride 99 L Carbon Dioxide 26 Anion Gap 9.0 BUN 16 Creatinine 1.4 H Estimated GFR (MDRD) 58 L Glucose 108 H Calcium 8.6 Total Bilirubin 0.4 AST 27 ALT 21 Alkaline Phosphatase 89 Total Protein 7.1 Albumin 3.8 Globulin 3.3 Albumin/Globulin Ratio 1.2 Lipase 25 Urine Color COLORLESS Urine Clarity CLEAR Urine pH 7.0 Ur Specific [place] 1.020 Urine Protein >=300 H Urine Glucose (UA) NEGATIVE Urine Ketones NEGATIVE Urine Occult Blood SMALL H Urine Nitrite NEGATIVE Urine Bilirubin NEGATIVE Urine Urobilinogen 0.2 (NORMAL) Ur Leukocyte Esterase NEGATIVE Urine RBC 0-5 Urine WBC 0-3 Ur Squamous Epith Cells NONE SEEN Urine Bacteria None Seen Ur Microscopic Review INDICATED Urine Culture Comments NOT INDICATED Urine Opiates Screen NEGATIVE Ur Buprenorphine Scrn NEGATIVE Ur Oxycodone Screen NEGATIVE Urine Methadone Screen NEGATIVE Ur Barbiturates Screen NEGATIVE Ur Tricyclics Screen NEGATIVE Ur Phencyclidine Scrn NEGATIVE Ur Amphetamine Screen NEGATIVE U Methamphetamines Scrn NEGATIVE U Benzodiazepines Scrn NEGATIVE Urine Cocaine Screen NEGATIVE U Cannabinoids Screen POSITIVE H Ur Drug Screen Comment CUTOFF CONC BELOW: Ethyl Alcohol 87.8 - Rads (name of study) CTH Relevant Findings:: Prelim report reviewed, See rad report PD Medical Decision Making - ED course Complexity details: reviewed results, re-evaluated patient, considered differential, d/w patient ED course: Patient presents with significantly elevated blood pressures associated with generalized headache, nausea and vomiting (including episodes of emesis during ED stay). Initial blood pressure was 220/150, with subsequent blood pressures generally 180s-200s/120s-140s. He was given labetalol 20mg IVP with mild improvement in blood pressures but required a second dose for subsequent up- trending blood pressures. His lowest diastolic BP during ED stay was 105, but increased to 122 after the second labetalol had plenty of time for effect and thus labetalol drip started. CTH unremarkable. Renal function is good with BUN 16, creatinine 1.4. UA with small blood on macro but normal microscopy. For CERVANTES, patient was given 4mg IV morphine sulfate with second dose for residual CERVANTES though he reported improvement with these interventions. He was given 4mg IV zofran for n/v which also led to patient-reported improvement in symptoms. I discussed this case with Dr. Zamudio ([facility]) who accepts patient to ICU. Departure - Departure Disposition: 66 [facility] DC/Jason Clinical Impression: Hypertensive urgency, malignant Condition: Stable Discharge Date/Time: 10/29/23 04:29
[2023-10-29] MEDS ORDERED: LABETALOL VIAL 200 MG in SODIUM CHLORIDE 0.9% 160 ML IV STA (02:37)
[2023-10-29] MEDS ORDERED: LABETALOL 5 MG/1 ML 20 ML MDV ONE (02:52)
--- NOTE | 2023-10-29 02:55 | HISTORY & PHYSICAL EXAMINATION ---
Chief Complaint - Chief Complaint Chief Complaint: High BP History of Present Illness - Admitted From Admitted From:: ER - History Obtained From Records Reviewed: Yes History obtained from: Pt, staff, chart Exam Limitations: Virtual exam - History of Present Illness HPI Comment/Other: 33 yo M with PMH HTN, Migraine H/A, HLD, Nephrotic Syndrome/CKD, CVA x 2, Anxiety/Depression presented from the assisted with c/o 1 day h/o Headache, Nausea/Vomiting and found to have high BP at the assisted. Pt was arrested earlier today. About 7 hours ago, he began to have a headache with Nausea/Vomiting. He vomited 3x: watery, not black or bloody. No abdo pain. No F/C. He was seen at the assisted and it was noted that his BP was very high, so he was sent to the ER. Pt has not been taking his Cellcept regularly x 1 week, but says that he has been taking his Lisinopril and Coreg. No CP/SOB. In the ER, BP 220/150-153/109, HR 110, WBC 13.4, Na 134, CR 1.4 UDS: +Cannabinoids, ETOH level 87.[address]: NAD CXR: pending EKG: pending Pt was given Labetalol 40mg IV, then placed on Labetalol drip, Morphine, Zofran in the ER. History - Past Medical History Cardiovascular: reports: Hypertension, High cholesterol Respiratory: reports: None Neuro: reports: CVA, Migraines Endocrine/Autoimmune: reports: None GI: reports: None : reports: Renal insuffiency Psych: reports: Anxiety, ADD/ADHD Musculoskeletal: reports: Other Derm: reports: None MRSA Hx?: No - Past Surgical History General: reports: Cholecystectomy, Other - POLST Patient has POLST: No Meds/Allgy - Home Medications Home Medications: Ambulatory Orders Medication Instructions Recorded Confirmed Atorvastatin [Lipitor] 40 mg PO DAILY 12/21/19 02/12/22 Lisinopril [Zestril] 20 mg PO DAILY 12/21/19 02/12/22 Albuterol Sulf [Ventolin Hfa 1 - 2 puffs INH Q4HR PRN #1 inhaler 04/08/21 07/04/21 Inhaler] mycophenolate mofetiL 1,000 mg PO DAILY 04/08/21 02/12/22 [Mycophenolate Mofetil] HYDROcod/ACETAM 5/325 [[place] 5/325] 1 - 2 tablet PO Q6H PRN #14 tablet 07/04/21 Prednisone [Norah] 5 mg PO DAILY 07/04/21 07/04/21 Ondansetron Odt [Zofran] 4 mg TL Q6H PRN #10 tablet 02/12/22 Sumatriptan Succinate [Imitrex] 50 mg PO BID PRN #10 tablet 02/12/22 carvediloL [Coreg] 6.25 mg PO BID 02/12/22 02/12/22 - Allergies Allergies/Adverse Reactions: Allergies Allergy/AdvReac Type Severity Reaction Status Date / Time ibuprofen Allergy Unknown Verified 10/28/23 23:02 amoxicillin [From Augmentin] AdvReac Nausea Verified 10/28/23 23:02 clavulanic acid AdvReac Nausea Verified 10/28/23 23:02 [From Augmentin] Review of Systems - All Other Systems All Other Systems: reports: Reviewed and negative Exam - Vital Signs Reviewed Vital Signs: Yes Vital Signs: Vital Signs x48h Temp Pulse Resp BP Pulse Ox 10/29/23 02:49 89 15 156/122 H 96 10/29/23 01:06 92 18 153/104 H 97 10/29/23 00:31 92 192/135 H 10/29/23 00:22 94 26 H 205/140 H 95 10/29/23 00:13 92 15 197/126 H 94 10/28/23 23:02 36.8 C 110 H 24 220/150 H 98 - Physical Exam General Appearance: positive: No acute distress, Alert Eyes Bilateral: positive: EOMI, No scleral icterus Respiratory: positive: No respiratory distress, Other (Access cart stethoscope not working; per ER Provider: CTA B/L) Cardiovascular: positive: Other (Access cart stethoscope not working; per ER Provider: RR, Tachy, no murmurs) Abdomen: positive: Other (per ER Provider: non-distended, NT, Soft) Extremities: positive: Full ROM, Other (per ER Provider: no edema) Neurologic/Psychiatric: positive: Oriented x3, Mood/affect nml Conclusion/Plan - Problem List (1) Hypertensive urgency, malignant Conclusion/Plan: Hypertensive Emergency HTN HLD -BP 220/150-153/109, HR 110 -Head CT: NAD -CXR: pending -EKG: pending -Pt was given Labetalol 40mg IV, then placed on Labetalol drip, Morphine, Zofran in the ER. -admit to ICU -continue Labetalol drip; titrate down as possible -restart home medications: Lisinopril, Coreg, statin -trend Troponins -F/U CXR, EKG -Echo ordered Migraine H/A Headache Nausea/Vomiting -continue home medications:Sumatriptan PRN -Benadryl dose now -anti-emetics PRN Leukocytosis -WBC 13.4 -possibly reactive -monitor for s/s of infection Nephrotic Syndrome/CKD, -Na 134, CR 1.4 -continue home medications: Cellcept H/o CVA x 2 -no residual effect Anxiety/Depression -supportive care Polysubstance use -UDS: +Cannabinoids, ETOH level 87.8 -cessation counseling -monitor for signs of W/D VTE Prophylaxis: Heparin SQ Code Status: Full Code ~Socorro Zamudio MD Hospitalist - Lab Results Lab results reviewed: Yes Fish Bones: 10/29/23 00:06 10/29/23 00:06
[2023-10-29] MEDS ORDERED: ONDANSETRON ODT 4 MG TABLET TL PRN (03:17)
[2023-10-29] MEDS ORDERED: ONDANSETRON 4 MG/2 ML VIAL IVP PRN (03:17)
[2023-10-29] MEDS ORDERED: PROCHLORPERAZINE 10 MG/2 ML VIAL IVP PRN (03:17)
[2023-10-29] MEDS ORDERED: MORPHINE 2 MG/ML CARPUJECT IVP PRN (03:17)
[2023-10-29] MEDS ORDERED: ACETAMINOPHEN 325 MG TABLET PO PRN (03:17)
[2023-10-29] MEDS ORDERED: SODIUM CHLORIDE FLUSH 0.9% 10 ML SYRINGE IVP PRN (03:17)
[2023-10-29] MEDS ORDERED: HYDROcod/ACETAM 5/325 MG TABLET PO PRN (03:21)
[2023-10-29] MEDS ORDERED: diphenhydrAMINE INJ 50 MG/ML VIAL IVP PRN (03:44)
[2023-10-29 04:31] LABS: CALCIUM 8.6 mg/dL (8.5-10.3); CREATININE 1.3 mg/dL (0.6-1.3); POTASSIUM 3.8 mmol/L (3.5-4.5); TROPONIN I HIGH SENSITIVITY 14.9 ng/L (2.3-19.7)
[2023-10-29] MEDS: SODIUM CHLORIDE FLUSH 0.9% 10 ML SYRINGE IVP SCH ×2 (08:30→18:25)
--- NOTE | 2023-10-29 08:50 | XRAY Report ---
PROCEDURE: Chest 2V INDICATIONS: malignant hypertension TECHNIQUE: 2 views of the chest were acquired. COMPARISON: 04/08/2021. FINDINGS: Surgical changes and devices: None. Lungs and pleura: No pleural effusions or pneumothorax. Lungs are clear. Mediastinum: Mediastinal contours appear normal. Heart size is normal. Bones and chest wall: No suspicious bony lesions. Overlying soft tissues appear unremarkable. IMPRESSION: No acute cardiopulmonary process. Findings are concordant with preliminary interpretation provided by [facility]. Reviewed by: Aarti Eng MD on 10/29/2023 8:48 AM PST Approved by: Aarti Eng MD on 10/29/2023 8:48 AM PST Station ID: [id number]
[2023-10-29] MEDS ORDERED: carvediloL 12.5 MG TABLET PO SCH (09:00)
[2023-10-29] MEDS ORDERED: HEPARIN 5,000 UNIT/ML VIAL SUBQ SCH (09:00)
[2023-10-29] MEDS ORDERED: ATORVASTATIN 10 MG TABLET PO SCH (09:00)
[2023-10-29] MEDS ORDERED: FAMOTIDINE 20 MG TABLET PO SCH (09:00)
[2023-10-29] MEDS ORDERED: lisinopriL 20 MG TABLET PO SCH (09:00)
--- NOTE | 2023-10-29 09:11 | PHARMACY PROGRESS NOTE ---
- Best Possible Medication History Admit Date and Time: 10/29/23316 Processed by: Pharmacy Medication History completed: Yes Patient Interview: Pt interview ONLY source As the person ultimately responsible for medication therapy, providers are able to order a medication from an existing home medication list in [facility] via the "Reconcile Routine" prior to Confirmation of that medication by support services manager. Such practice is discouraged except when the physician, in their clinical judgment, deems that a medical need exists for a medication without regard to previous use.
[2023-10-29 09:41] LABS: BASOPHILS % (AUTO) 0.3 %; EOSINOPHILS % (AUTO) 0.4 %; HCT - HEMATOCRIT 42.1 % (42.0-52.0); HGB - HEMOGLOBIN 14.3 g/dL (14.0-18.0); LYMPHOCYTES # (AUTO) 1.8 10^3/uL (1.5-3.5); MEAN CORPUSCULAR HEMOGLOBIN 31.5 pg (27.0-31.0); MEAN CORPUSCULAR VOLUME 92.7 fL (80.0-94.0); MEAN PLATELET VOLUME 9.2 fL (7.4-11.4); MONOCYTES # (AUTO) 0.9 10^3/uL (0.0-1.0); MONOCYTES % (AUTO) 8.1 %; NEUTROPHILS # (AUTO) 7.8 10^3/uL (1.5-6.6); NEUTROPHILS % (AUTO) 73.9 %; PLT - PLATELET COUNT 288 10^3/uL (130-450); RED BLOOD COUNT 4.54 10^6/uL (4.70-6.10); WHITE BLOOD COUNT 10.6 x10^3/uL (4.8-10.8)
[2023-10-29] MEDS ORDERED: SUMAtriptan 25 MG TABLET PO PRN (10:09)
[2023-10-29 16:41] VITALS: BP 123/90; O2SAT 95
--- NOTE | 2023-10-29 17:25 | Discharge Plan ---
Discharge Plan Condition: Stable No Smoking: If you smoke, Please STOP! Call for help.
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
[2023-10-30] MEDS ORDERED: mycophenolate mofetiL 250 MG CAPSULE PO SCH (09:00)
== END 2023-10-29 20:39 | disposition home or self-care (01) | DRG 305 ==
LOC: EDBD → EDUNIT# → ED 22:59 → ICU 10-29 03:17
PROVIDERS: ADMIT Internal Medicine; ATTEND Internal Medicine
DX: I16.1 Hypertensive emergency (principal); I12.9 Hypertensive chronic kidney disease with stage 1 through stage 4 chronic kidney disease, or unspecified chronic kidney disease; N18.9 Chronic kidney disease, unspecified; D72.829 Elevated white blood cell count, unspecified; Z86.73 Personal history of transient ischemic attack (TIA), and cerebral infarction without residual deficits; F41.9 Anxiety disorder, unspecified; F32.A Depression, unspecified; G43.909 Migraine, unspecified, not intractable, without status migrainosus; E78.5 Hyperlipidemia, unspecified
CPT/HCPCS: 36415; 70450; 71046; 80048; 80053; 80306; 80320; 81001; 83690; 84484; 85025; 87150; 93005; 96374; 96375; 96376; 99285; 99406; A9270; 81003; 87086

== ENCOUNTER 2024-07-12 14:02 | Outpatient (CLI) | payer OTHER ==
[2024-07-12 14:08] LABS: BASOPHILS % (AUTO) 0.5 %; EOSINOPHILS # (AUTO) 0.2 10^3/uL (0.0-0.7); EOSINOPHILS % (AUTO) 3.4 %; HCT - HEMATOCRIT 48.4 % (42.0-52.0); HGB - HEMOGLOBIN 16.4 g/dL (14.0-18.0); LYMPHOCYTES # (AUTO) 1.6 10^3/uL (1.5-3.5); LYMPHOCYTES % (AUTO) 27.8 %; MEAN CORPUSCULAR HEMOGLOBIN 31.4 pg (27.0-31.0); MEAN CORPUSCULAR HGB CONC 33.9 g/dL (32.0-36.0); MEAN CORPUSCULAR VOLUME 92.5 fL (80.0-94.0); MEAN PLATELET VOLUME 10.1 fL (7.4-11.4); MONOCYTES # (AUTO) 0.4 10^3/uL (0.0-1.0); MONOCYTES % (AUTO) 7.4 %; NEUTROPHILS # (AUTO) 3.5 10^3/uL (1.5-6.6); NEUTROPHILS % (AUTO) 60.7 %; PLT - PLATELET COUNT 324 10^3/uL (130-450); RED BLOOD COUNT 5.23 10^6/uL (4.70-6.10); RED CELL DISTRIBUTION WIDTH 12.5 % (12.0-15.0); WHITE BLOOD COUNT 5.8 x10^3/uL (4.8-10.8)
[2024-07-12 14:24] LABS: ALBUMIN 4.1 g/dL (3.2-5.5); ALBUMIN/GLOBULIN RATIO 1.3 (1.0-2.2); BILIRUBIN,TOTAL 0.5 mg/dL (0.2-1.0); CALCIUM 9.6 mg/dL (8.5-10.3); CREATININE 1.7 mg/dL (0.6-1.3); POTASSIUM 4.3 mmol/L (3.5-4.5); TOTAL PROTEIN 7.2 g/dL (6.4-8.9)
== END 2024-07-12 14:03 | disposition home or self-care (01) ==
LOC: LAB.R 14:02
PROVIDERS: ATTEND Registered Nurse
DX: R79.9 Abnormal finding of blood chemistry, unspecified (principal); R68.89 Other general symptoms and signs
CPT/HCPCS: 80053; 85025